=== PATIENT | male | born 1965 | race Caucasian/White ===

== ENCOUNTER → 2017-05-09 | Outpatient (CLI) | payer OTHER ==
[2017-05-09 17:43] LABS: BASO % 0.1 %; BASO ABS # 0.01 K/uL (0-0.2); EOS % 3.6 %; EOS ABS # 0.36 K/uL (0-0.5); HEMATOCRIT 41.5 % (42-52); HEMOGLOBIN 14.6 g/dL (14.0-18.0); IG# 0.13 K/uL (0.00-0.02); LYMPH % 33.8 %; LYMPH ABS # 3.41 K/uL (1.2-3.4); MEAN CELL VOLUME 86.3 fL (80-100); MEAN CORPUSCULAR HEMOGLOBIN 30.4 pg (25-34); MEAN CORPUSCULAR HGB CONC 35.2 g/dl (32-36); MEAN PLATELET VOLUME 10.5 fL (7.4-10.4); MONO % 7.8 %; MONO ABS # 0.79 K/uL (0.11-0.59); NEUT % 53.4 %; PLATELET COUNT 216 K/uL (130-400); RED CELL DISTRIBUTION WIDTH CV 14.1 % (11.5-14.5); RED CELL DISTRIBUTION WIDTH SD 41.8 fL (36.4-46.3)
[2017-05-09 18:11] LABS: BLOOD UREA NITROGEN 20 mg/dl (7-18); CALCIUM 9.3 mg/dl (8.5-10.1); CARBON DIOXIDE 26 mmol/L (21-32); CREATININE 1.09 mg/dl (0.60-1.40); GLUCOSE 89 mg/dl (70-99); POTASSIUM 3.9 mmol/L (3.5-5.1); SODIUM 138 mmol/L (136-145)
== END | disposition home or self-care (01) ==
LOC: C.LABSPEC 16:15
PROVIDERS: ATTEND Family Medicine
DX: B34.9 Viral infection, unspecified (principal)

== ENCOUNTER 2021-07-06 23:23 | Inpatient (IN) ==
[2021-07-06] MEDS ORDERED: ONDANSETRON INJ 2 MG/ML 2 ML VIAL IV STA (23:54)
[2021-07-06] MEDS ORDERED: SODIUM CHLORIDE 0.9% 1000ML 1,000 ML IV STA (23:54)
--- NOTE | 2021-07-06 23:56 | Emergency Department Note ---
Impression & Plan COVID-19 ADMIT ED Provider Note HPI: The patient is a 56-year-old gentleman who presents to the emergency department with a chief complaint of feeling "sick". Patient states that he has had symptoms of COVID-19 for about the past month. He states he was officially di agnosed with COVID-19 1 week ago. He states that he is not feeling any better. Patient states he is nauseated, has diminished appetite, generalized weakness. States he also has shortness of breath. Patient tells me he gets very severe severely short of breath with ambulation, states he had to crawl to the restroom today because he was unable to walk. On arrival to the ED the patient is in mil d distress secondary to increased work of breathing but he is saturating at 92% on room air. He is otherwise hemodynamically stable. ROS: -General: Generalized weakness, recent diagnosis of COVID-19 -GI: Nausea, diminished appetite *10 point review systems was conducted and is otherwise negative unless stated above *Outpatient medications and allergy history reviewed PE: General: Alert HEENT: Normocephalic, atraumatic Eyes: Extraocular eye movement is intact, no scleral erythema Pulmonary: Diminished air movement bilaterally, coarse breath sounds bilaterally Cardio: Regular rate and rhythm GI: Abdomen is soft, nontender : No suprapubic tenderness MSK: No evidence of trauma or malformation of the extremities, no edema Skin: No evidence of rash Neuro: Alert, no focal deficits Psychiatric: Cooperative quality assurance monitor final: - An order was placed for continuous cardiac monitoring - Patient was noted to be in sinus rhythm with rate of 85 EKG: Rate: 89 Rhythm: Normal sinus rhythm Intervals: Within normal limits Time: 0036 ST changes: No ST elevation CTA CHEST: Very extensive bilateral pulmonary infiltrates in all lobes consistent with bilateral pneumonia. Infiltrates have worsened relative to July 01, 2021. No evidence of pulmonary emboli. C Radiologist: Johnnie Brady MD Medical Decision Making: Patient presented to the emergency department with increased work of breathing, he was diagnosed with COVID-19 on June 30. He states his symptoms have worsened since then, states he feels more short of breath, states he is having difficulty ambulating throughout his house. He is saturating at 92% on room air on my evaluation, this is fluctuated somewhat but he has remained between 90 and 92% on room air while here in the ED with mild increased work of breathing. Lab work is generally unremarkable, he does not have a leukocytosis, he does have slight hyponatremia. Chest x-ray is concerning for multifocal pneumonia, CT imaging was obtained of the chest that does not show any evidence of pulmonary embolism but does show fairly extensive bilateral pulmonary infiltrates in all lobes consistent with bilateral pneumonia. My reassessment the patient states he does not feel well enough to go home, he was given a dose of IV Decadron as I do suspect his CT imaging findings are secondary to COVID-19 pneumonia. He is unvaccinated. We do not have monoclonal antibodies available for the patient. He tells me he does not feel safe going home and he believes he will require admission. Given his work of breathing with ambulation and imaging findings hospitalist service will be consulted for admission. Patient was in agreement to the above plan. Diagnosis: 1. COVID-19 bilateral pneumonia 2. Dyspnea on exertion 3. Hyponatremia 4. Generalized weakness Disposition: Admission Herb Wilburn DO Emergency Medicine Past Med/Surg History Medical History (Updated 07/07/21 @ 02:52 by Herb Wilburn DO) Chronic back pain Degenerative disc disease GERD (gastroesophageal reflux disease) mild - baking soda PRN History of anesthesia reaction trouble urinating post-op Peripheral neuropathy whole body - originated in cervical spine Transverse myelitis cervical 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 Follows with [place] Neurosurgeon, Dr. Connelly ([place]) Surgical History History of colonoscopy History of discectomy with fusion C5-C6 (2018). 90% ROM History of open reduction and internal fixation (ORIF) procedure Left elbow S/P epidural steroid injection right SI Joint S/P LASIK surgery Family History Other No family history of adverse response to anesthesia Social History Smoking Status: Former smoker Second Hand Exposure: Yes (hx); Hx Alcohol Use: No Hx Substance Use: No Preferred Language: Czech Communication Ability: Effective Nuclear Medicine Supervisor Required: No Beliefs That Will Affect Care: None Current Living Situation: Parent Feels Safe at Home: Yes Assistive Devices: None Allergies Allergies Allergy/AdvReac Type Severity Reaction Status Date / Time No Known Allergies Allergy Verified 07/07/21 01:54 Home Meds Home Medications Medication Instructions Recorded Confirmed ascorbic acid (vitamin C) 1,000 mg 1 g PO DAILY 07/02/19 07/07/21 tablet (Vitamin C) cyanocobalamin (vitamin B-12) 1,000 mcg PO Q2D 07/02/19 07/07/21 1,000 mcg tablet (Vitamin B-12) gabapentin 300 mg capsule 1,200 mg PO TID 07/02/19 07/07/21 baclofen 20 mg tablet 30 mg PO TID 06/30/21 07/07/21 acetaminophen 325 mg tablet 650 mg PO QID PRN 07/07/21 07/07/21 (Tylenol) albuterol sulfate 90 mcg/actuation 1 - 2 puff INHALATION QID PRN 07/07/21 07/07/21 aerosol inhaler ibuprofen 200 mg tablet (Motrin IB) 600 mg PO Q6H PRN 07/07/21 07/07/21 Results & Data (ED) Vital Signs Vital Signs - 24 hr 07/06/21 23:32 07/07/21 00:49 07/07/21 02:35 Temperature 36.9 C Temperature Source Temporal Artery Scan Pulse Rate 107 H Pulse Rate [Apical] 85 Pulse Rhythm [Apical] Regular Respiratory Rate 18 17 22 Respiratory Effort / Characteristics Non-Labored SOB on Exertion Non-Labored Respiratory Depth Normal Normal Normal Respiratory Pattern Regular Regular Blood Pressure 98/63 L Blood Pressure [Right Arm] 110/70 112/80 Blood Pressure Mean 74 Blood Pressure Mean [Right Arm] 83 90 Pulse Oximetry 92 93 93 Oxygen Delivery Method Room Air Room Air Room Air Oxygen Flow Rate 91 Sepsis Recent Fever Within 48 Hours No Sepsis New/Unexplained Change in Mental Status N/A Sepsis Action Taken by Nursing No Action Required Pulse Oximetry Post Tiitration 92 Laboratory Data Result diagrams: 07/07/21 00:45 07/07/21 00:45 Lab Results 07/07/21 07/07/21 07/07/21 Range/Units 00:45 00:45 00:45 WBC 5.47 (4.8-10.8) K/uL RBC 4.30 L (4.7-6.1) M/uL Hgb 12.4 L (14.0-18.0) g/dL Hct 35.5 L (42-52) % MCV 82.6 (80-100) fL MCH 28.8 (25-34) pg MCHC 34.9 (32-36) g/dL RDW Std Deviation 40.8 (36.4-46.3) fL RDW Coeff of Sherie 13.4 (11.5-14.5) % Plt Count 348 (130-400) K/uL MPV 8.9 (7.4-10.4) fL Immature Gran % (Auto) 0.9 % Neut % (Auto) 82.2 % Lymph % (Auto) 9.3 % [place] % (Auto) 6.8 % Eos % (Auto) 0.4 % Baso % (Auto) 0.4 % Neut # (Auto) 4.50 (1.4-6.5) K/uL Lymph # (Auto) 0.51 L (1.2-3.4) K/uL [place] # (Auto) 0.37 (0.11-0.59) K/uL Eos # (Auto) 0.02 (0-0.5) K/uL Baso # (Auto) 0.02 (0-0.2) K/uL Immature Gran # (Auto) 0.05 H (0.00-0.02) K/uL RBC Morphology Unremarkable Sodium 129 L (136-145) mmol/L Potassium 3.5 (3.5-5.1) mmol/L Chloride 100 (98-107) mmol/L Carbon Dioxide 21 (21-32) mmol/L Anion Gap 8 (3-11) BUN 12 (6-23) mg/dl Creatinine 0.70 (0.6-1.4) mg/dl Est Cr Clr Drug Dosing Not Reportable Est GFR ( Amer) 123.1 ml/min Est GFR (Non-Af Amer) 106.2 ml/min BUN/Creatinine Ratio 17.1 (10-20) Glucose 102 H (70-99(Fasting)) mg/dl Calcium 8.2 L (8.5-10.1) mg/dl Total Bilirubin 0.7 (0.2-1.0) mg/dl AST 57 H (13-39) U/L ALT 74 H (7-52) U/L Alkaline Phosphatase 140 H (34-104) U/L Troponin I < 0.03 (0-0.04) ng/ml Total Protein 6.1 (6.0-8.3) gm/dl Albumin 3.1 L (3.4-5.0) gm/dl Globulin 3.0 (2.5-4.0) gm/dl Albumin/Globulin Ratio 1.0 (0.9-2) Lipase 33 (11-82) U/L Procalcitonin 0.14 (0-0.5) ng/ml Administered Medications Discontinued Medications Sodium Chloride (Nss 1000ml) 1,000 mls @ 999 mls/hr IV .Q1H1M STA Stop: 07/07/21 00:54 Last Infusion: 07/07/21 01:46 Dose: 0 mls/hr Documented by: [id number] Admin: 07/07/21 00:43 Dose: 999 mls/hr Documented by: [id number] Ioversol (Optiray 320 125ml) 118 ml IV ONCE ONE Stop: 07/07/21 01:43 Last Admin: 07/07/21 01:42 Dose: 118 ml Documented by: [id number] Ondansetron HCl (Ondansetron Inj 2 Mg/Ml 2 Ml Vial) 4 mg IV NOW STA Stop: 07/06/21 23:55 Last Admin: 07/07/21 00:43 Dose: 4 mg Documented by: [id number] Discharge Plan Visit Data Chief Complaint: Shortness of Breath/Dyspnea Stated Complaint: COVID+ 1 MONTH, SOB, FEVER WORSENING ED Provider: Herb Wilburn Discharge Problem: COVID-19 Forms Stand Alone Forms: [facility] Prescriptions Prescriptions: No Action gabapentin 300 mg Capsule 1,200 mg PO TID RF: 0 ascorbic acid (vitamin C) [Vitamin C] 1,000 mg Tablet 1 g PO DAILY RF: 0 cyanocobalamin (vitamin B-12) [Vitamin B-12] 1,000 mcg Tablet 1,000 mcg PO Q2D RF: 0 baclofen 20 mg Tablet 30 mg PO TID RF: 0 acetaminophen [Tylenol] 325 mg Tablet 650 mg PO QID PRN (Reason: Fever Or Pain) RF: 0 ibuprofen [Motrin IB] 200 mg Tablet 600 mg PO Q6H PRN (Reason: Fever/pain) RF: 0 albuterol sulfate 90 mcg/actuation HFA aerosol inhaler 1 - 2 puff INHALATION QID PRN (Reason: Shortness Of Breath Or Wheezing) RF: 0 Referrals Referrals: Susu Marmolejo PA-C [Primary Care Provider] -
[2021-07-07 00:54] LABS: Hematocrit (blood only) 35.5 % (42-52); Hemoglobin 12.4 g/dL (14.0-18.0); Mean Corpuscular Hemoglobin 28.8 pg (25-34); Mean Corpuscular Hgb Conc 34.9 g/dL (32-36); Mean Corpuscular Volume 82.6 fL (80-100); Mean Platelet Volume 8.9 fL (7.4-10.4); Platelet Count 348 K/uL (130-400); RDW Coefficient of Variation 13.4 % (11.5-14.5); RDW Standard Deviation 40.8 fL (36.4-46.3); White Blood Count 5.47 K/uL (4.8-10.8)
[2021-07-07 01:16] LABS: Troponin I < 0.03 ng/ml (0-0.04)
[2021-07-07 01:18] LABS: Alanine Aminotransferase 74 U/L (7-52); Albumin Level 3.1 gm/dl (3.4-5.0); Alkaline Phosphatase 140 U/L (34-104); Anion Gap 8 (3-11); Aspartate Aminotransferase 57 U/L (13-39); BUN Creatinine Ratio 17.1 (10-20); Bilirubin,Total 0.7 mg/dl (0.2-1.0); Blood Urea Nitrogen 12 mg/dl (6-23); Calcium 8.2 mg/dl (8.5-10.1); Carbon Dioxide 21 mmol/L (21-32); Chloride 100 mmol/L (98-107); Est GFR (African American) 123.1 ml/min; Est GFR (Non-African American) 106.2 ml/min; Glucose 102 mg/dl (70-99(Fasting)); Lipase 33 U/L (11-82); Potassium 3.5 mmol/L (3.5-5.1); Sodium 129 mmol/L (136-145); Total Protein 6.1 gm/dl (6.0-8.3)
[2021-07-07 01:22] LABS: Basophils # (auto) 0.02 K/uL (0-0.2); Basophils % (auto) 0.4 %; Eosinophils # (auto) 0.02 K/uL (0-0.5); Eosinophils % (auto) 0.4 %; Immature Granulocytes # (auto) 0.05 K/uL (0.00-0.02); Immature Granulocytes % (auto) 0.9 %; Lymphocytes # (auto) 0.51 K/uL (1.2-3.4); Lymphocytes % (auto) 9.3 %; Monocytes # (auto) 0.37 K/uL (0.11-0.59); Monocytes % (auto) 6.8 %; Neutrophils % (auto) 82.2 %; RBC Morphology Unremarkable
[2021-07-07] MEDS ORDERED: OPTIRAY 320 125ml IV ONE (01:42)
[2021-07-07] MEDS ORDERED: dexAMETHasone 8 MG in SYRINGE 0 ML IV ONE (02:24)
[2021-07-07 03:18] LABS: Influenza A virus by PCR Negative (Neg); Influenza B virus by PCR Negative (Neg); RSV by PCR Negative (Neg)
[2021-07-07 03:21] LABS: SARS CoV2 RNA(COVID-19) InHosp POSITIVE (Negative)
[2021-07-07] MEDS ORDERED: ACETAMINOPHEN 325 MG TAB PO PRN (05:32)
[2021-07-07] MEDS ORDERED: ONDANSETRON INJ 2 MG/ML 2 ML VIAL IV PRN (05:32)
--- NOTE | 2021-07-07 06:04 | History & Physical Report ---
Date of Service July 07, 2021 Assessment & Plan (1) Pneumonia due to COVID-19 virus: Plan: Pneumonia due to COVID-19 virus with hypoxia- Significantly worsened chest x-ray since 06/30 Symptoms have now been present for 4 weeks Dexamethasone 6 mg IV every 12 hours Albuterol HFA 2 puffs 4 times daily, and every 2 hours as needed Vitamin D 5000 international units p.o. every morning Guaifenesin 1200 mg p.o. twice daily Zinc sulfate 220 mg p.o. every morning Nasal cannula oxygen, titrate to keep pulse ox 94-95% Admit to monitored bed (2) Hypoxia: Plan: See above (3) Hyponatremia: Plan: Sodium 129 upon admission, 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 If worsens, would start sodium chloride 1 g p.o. twice daily (4) Transaminitis: Plan: AST 57, ALT 74 upon admission Normal just 1 week ago Likely secondary to COVID 19 infection Follow serially (5) Transverse myelitis: Plan: Was given 1 L of normal saline, reports has not been able to urinate, but does feel sensation Asks for [place] catheter to be placed. Continue routine supportive medications: Baclofen, nate B12, gabapentin Hold ibuprofen while on Decadron Admission and Anticipated Discharge Date Admission Date: July 07, 2021 History of Present Illness Chief Complaint: The patient presents to the emergency department with worsening shortness of breath, dyspnea on exertion, productive cough, and fatigue. Primary Care Provider: Susu Marmolejo PA-C The patient is a 56-year-old male with a past medical history including transverse myelitis, vitamin B12 deficiency, peripheral neuropathy and muscle spasm. He initially developed symptoms about 4 weeks ago. 1 week ago he came into the emergency department, he was diagnosed with COVID-19 infection. Due to worsening symptoms over the past week, he presents to the ED again this evening for repeat assessment. Significant laboratories: Sodium 129, potassium 3.5, AST 57, ALT 74, BUN 3.1, hemoglobin 12.4, hematocrit 35.5. COVID-19 testing was positive on 06/30/2020 Chest x-ray: Significantly worsening bilateral multifocal pneumonia. From the ED the patient received the following: Dexamethasone 8 mg IV, Zofran 4 mg IV, and normal saline 1 L bolus Allergies Allergy/AdvReac Type Severity Reaction Status Date / Time No Known Allergies Allergy Verified 07/07/21 01:54 Home Medications Medication Instructions Recorded Confirmed Type ascorbic acid (vitamin C) 1,000 mg 1 g PO DAILY 07/02/19 07/07/21 History tablet (Vitamin C) cyanocobalamin (vitamin B-12) 1,000 mcg PO Q2D 07/02/19 07/07/21 History 1,000 mcg tablet (Vitamin B-12) gabapentin 300 mg capsule 1,200 mg PO TID 07/02/19 07/07/21 History baclofen 20 mg tablet 30 mg PO TID 06/30/21 07/07/21 History acetaminophen 325 mg tablet 650 mg PO QID PRN 07/07/21 07/07/21 History (Tylenol) albuterol sulfate 90 mcg/actuation 1 - 2 puff INHALATION QID PRN 07/07/21 07/07/21 History aerosol inhaler ibuprofen 200 mg tablet (Motrin IB) 600 mg PO Q6H PRN 07/07/21 07/07/21 History Past Med/Surg History Medical History (Updated 07/07/21 @ 06:01 by Michael Zaragoza MD) Chronic back pain Degenerative disc disease GERD (gastroesophageal reflux disease) mild - baking soda PRN History of anesthesia reaction trouble urinating post-op Peripheral neuropathy whole body - originated in cervical spine Transverse myelitis cervical 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 Follows with [place] Neurosurgeon, Dr. Connelly ([place]) Surgical History History of colonoscopy History of discectomy with fusion C5-C6 (2018). 90% ROM History of open reduction and internal fixation (ORIF) procedure Left elbow S/P epidural steroid injection right SI Joint S/P LASIK surgery Family History Other No family history of adverse response to anesthesia Social History Smoking Status: Former smoker Second Hand Exposure: Yes (hx); Hx Alcohol Use: No Hx Substance Use: No Preferred Language: Faroese Communication Ability: Effective Display Department Manager Required: No Beliefs That Will Affect Care: None Current Living Situation: Parent Feels Safe at Home: Yes Assistive Devices: None Review of Systems Review of Systems: The patient denies chest pain, palpitations, lower extremity swelling, sore throat, fevers, chills, sweats, nausea, vomiting, diarrhea , constipation, abdominal pain, pelvic pain, blood in urine or stool, lightheadedness, dizziness, headache, memory loss, loss of consciousness, rash, abnormal bruising or bleeding, focal or generalized weakness, numbness or tingling in arms, generalized arthralgias or myalgias, neck pain, or night sweats. The review of systems is otherwise negative other than for that already noted above, and at least 10 systems have been reviewed. Physical Exam Physical Exam: The patient is awake, alert and oriented 3, looks very fatigued, normocephalic and atraumatic, lying in bed and in no acute distress. HEENT--PERRL, EOMI, mucous membranes and oropharynx normal. Neck--supple. No JVD. No bruits. Thyroid normal, trachea midline, no adenopathy. Heart--normal S1 and S2. No murmurs, rubs or gallops. Lungs--coarse breath sounds bilaterally. No respiratory distress or accessory muscle use at rest Abdomen--normal bowel sounds and soft. Nontender. Nondistended. Extremities--no cyanosis or clubbing. No edema. Dermatologic--normal skin turgor, normal color, no abnormal lymph nodes, no rash. Neurologic--cranial nerves II through XII grossly intact. Rheumatologic--normal range of motion. Psychiatric--normal affect. Results & Data Results & Data ([facility]) Vital Signs (Past 12 Hours) Vital Signs Temp Pulse Pulse Resp BP BP Pulse Ox 07/07/21 05:31 37.6 C H 94 H 22 123/76 94 07/07/21 04:00 88 26 H 118/76 92 07/07/21 02:35 85 22 112/80 93 07/07/21 00:49 17 110/70 93 07/06/21 23:32 36.9 C 107 H 18 98/63 L 92 Laboratory Results Laboratory Results WBC 5.47 K/uL (4.8-10.8) 07/07/21 00:45 RBC 4.30 M/uL (4.7-6.1) L 07/07/21 00:45 Hgb 12.4 g/dL (14.0-18.0) L 07/07/21 00:45 Hct 35.5 % (42-52) L 07/07/21 00:45 MCV 82.6 fL (80-100) 07/07/21 00:45 MCH 28.8 pg (25-34) 07/07/21 00:45 MCHC 34.9 g/dL (32-36) 07/07/21 00:45 RDW Std Deviation 40.8 fL (36.4-46.3) 07/07/21 00:45 RDW Coeff of Sherie 13.4 % (11.5-14.5) 07/07/21 00:45 Plt Count 348 K/uL (130-400) 07/07/21 00:45 MPV 8.9 fL (7.4-10.4) 07/07/21 00:45 Immature Gran % (Auto) 0.9 % 07/07/21 00:45 Neut % (Auto) 82.2 % 07/07/21 00:45 Lymph % (Auto) 9.3 % 07/07/21 00:45 [place] % (Auto) 6.8 % 07/07/21 00:45 Eos % (Auto) 0.4 % 07/07/21 00:45 Baso % (Auto) 0.4 % 07/07/21 00:45 Neut # (Auto) 4.50 K/uL (1.4-6.5) 07/07/21 00:45 Lymph # (Auto) 0.51 K/uL (1.2-3.4) L 07/07/21 00:45 [place] # (Auto) 0.37 K/uL (0.11-0.59) 07/07/21 00:45 Eos # (Auto) 0.02 K/uL (0-0.5) 07/07/21 00:45 Baso # (Auto) 0.02 K/uL (0-0.2) 07/07/21 00:45 Immature Gran # (Auto) 0.05 K/uL (0.00-0.02) H 07/07/21 00:45 RBC Morphology Unremarkable 07/07/21 00:45 Sodium 129 mmol/L (136-145) L 07/07/21 00:45 Potassium 3.5 mmol/L (3.5-5.1) 07/07/21 00:45 Chloride 100 mmol/L (98-107) 07/07/21 00:45 Carbon Dioxide 21 mmol/L (21-32) 07/07/21 00:45 Anion Gap 8 (3-11) 07/07/21 00:45 BUN 12 mg/dl (6-23) 07/07/21 00:45 Creatinine 0.70 mg/dl (0.6-1.4) 07/07/21 00:45 Est Cr Clr Drug Dosing Not Reportable 07/07/21 00:45 Est GFR ( Amer) 123.1 ml/min 07/07/21 00:45 Est GFR (Non-Af Amer) 106.2 ml/min 07/07/21 00:45 BUN/Creatinine Ratio 17.1 (10-20) 07/07/21 00:45 Glucose 102 mg/dl (70-99(Fasting)) H 07/07/21 00:45 Calcium 8.2 mg/dl (8.5-10.1) L 07/07/21 00:45 Total Bilirubin 0.7 mg/dl (0.2-1.0) 07/07/21 00:45 AST 57 U/L (13-39) H 07/07/21 00:45 ALT 74 U/L (7-52) H 07/07/21 00:45 Alkaline Phosphatase 140 U/L (34-104) H 07/07/21 00:45 Troponin I < 0.03 ng/ml (0-0.04) 07/07/21 00:45 Total Protein 6.1 gm/dl (6.0-8.3) 07/07/21 00:45 Albumin 3.1 gm/dl (3.4-5.0) L 07/07/21 00:45 Globulin 3.0 gm/dl (2.5-4.0) 07/07/21 00:45 Albumin/Globulin Ratio 1.0 (0.9-2) 07/07/21 00:45 Lipase 33 U/L (11-82) 07/07/21 00:45 Procalcitonin 0.14 ng/ml (0-0.5) 07/07/21 00:45 SARS-CoV-2 (PCR) POSITIVE (Negative) A* 07/07/21 02:30 Influenza Type A (PCR) Negative (Neg) 07/07/21 02:30 Influenza Type B (PCR) Negative (Neg) 07/07/21 02:30 RSV (RT-PCR) Negative (Neg) 07/07/21 02:30 Code Status & VTE Plan Code Status Full code VTE Prophylaxis Plan VTE Prophylaxis will be ordered: Yes PG Care Time/CCT Total # of Minutes Spent Total Time Spent with Patient: Total time spent is greater than 50% in coordination of care (as documented) at patient's floor/unit and/or counseling patient: Coding Level of Care Code 20838 Initial Inpt Care Lvl 3 Diagnoses Pneumonia due to COVID-19 virus U07.1; J12.82 Hypoxia R09.02 Hyponatremia E87.1 Transaminitis R74.01 Transverse myelitis G37.3
[2021-07-07] MEDS ORDERED: PATIENT'S HEIGHT AND/OR WEIGHT NEEDED SCH (06:15)
[2021-07-07] MEDS: ALBUTEROL HFA 8 GM INHALER INH SCH ×4 (06:15→19:49)
--- NOTE | 2021-07-07 08:01 | Hospitalist Progress Note ---
Date of Service July 07, 2021 Assessment & Plan (1) Pneumonia due to COVID-19 virus: Plan: Jasbir is a 56-year-old male with past medical history of transverse myelitis, B12 deficiency, peripheral neuropathy, chronic muscle spasms who presents to the emergency department with shortness of breath, dyspnea, cough, and fatigue which began approximately 7 days ago and he was diagnosed with COVID-19. He was initially discharged home, has had worsening symptoms over the past week and presents for reevaluation. Acute hypoxic respiratory failure 2/2 COVID-pneumonia Covid positive on 06/30/2021. Repeat positive on admission. Flu/RSV negative First day of symptoms: Unclear, reports up to 1 month of symptoms. Vaccination status: Did not receive COVID-vaccine Baseline kidney function: Normal Admitting kidney function: Creatinine 0.70 AST/ALT: 57/74, mildly elevated normal at baseline. Alk phos 140. Patient with some abdominal pain and right upper quadrant tenderness, although not severe and not worsened by food. Will obtain right upper quadrant ultrasound for gallbladder assessment although likely suspect due to COVID. CXR: Significantly worsened multifocal pneumonia CTA: Very extensive bilateral pulmonary infiltrates in all lobes consistent wi th bilateral pneumonia, worsened infiltrates from 07/01, no evidence of pulmonary emboli CRP: Pending Procalcitonin negative, antibiotics deferred Continue dexamethasone x10-day course Remdesivir: Not indicated, patient with more than 10 days of symptoms Baricitinib: Not indicated, patient not requiring high flow Started on increased dose dexamethasone 6 mg IV twice daily on admission given severe disease and worsening, continue to follow Albuterol as needed Guaifenesin as needed Zinc sulfate every morning SPO2 support, goal greater than 90% Lovenox COVID DVT prophylaxis (2) Hypoxia: Plan: See above (3) Hyponatremia: Plan: Sodium 129 upon admission, 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 If worsens, would start sodium chloride 1 g p.o. twice daily (4) Transaminitis: Plan: AST 57, ALT 74 upon admission Normal just 1 week ago Patient does report some right upper quadrant discomfort, denies that this is affected by food but also reports he has not eaten much of anything in the previous month. Alk phos also elevated, acutely elevation. Will obtain ultrasound gallbladder to better assess although may just be consistent with COVID-19 infection Follow serially (5) Transverse myelitis: Plan: Continue routine supportive medications: Baclofen, nate B12, gabapentin Hold ibuprofen while on Decadron hx of intermittent chronic urinary retention per pt Admission and Anticipated Discharge Date Admission Date: July 07, 2021 Subjective Almost no PO intake in last month, 'parched and tired and anything that entered my mouth ended up the enemy and a mouth full of alum. Even lozenge worthless.' Symptoms have worsened Gradually worsened since last tuesday 'gradually went downhill.' Cant sleep, wakes up short of breath with oxygen levels in the 80s. Only a handful of sleep in the last month. Denies chest pain, chest pressure, shortness of breath while laying in bed at time of visit. Endorses shortness of breath with any ambulation, walking around "just wiped me out ". Endorses he feels like he has had a sour/rotten gut for a month. Denies nausea/vomiting/diarrhea. Does not report any change in discomfort with food, but notes he just has not been eating anything in the previous few weeks. Review of Systems Review of Systems: All systems reviewed & are unremarkable except as noted in Subjective Physical Exam Physical Exam: General: A&Ox3. NAD. Cooperative. HEENT: Atraumatic, normocephalic. Pupils equal and reactive to light. Visual acuity grossly intact. Pulm: Bibasilar crackles,-wheezes, -rales, -rhonchi. Symmetrical chest rise. No increase in work of breathing. No respiratory distress. Cardiac: RRR, -mrg. Radial pulses intact and symmetrical. Abdominal: Trace right upper quadrant tenderness, greatly improved from prior per patient, nondistended, soft. BS present. Extremities: Sensation intact in all 4 extremities to soft touch. Radial pulse and PT pulse intact and symmetrical bilaterally. No pedal edema. Rn Surgery Icu strength, elbow flexion/extension, hip flexion, and ankle dorsiflexion/plantarflexion 5/5 bilaterally although qualitatively slightly weaker on the right. Results & Data Results & Data ([facility]) Vital Signs (Past 12 Hours) Vital Signs Temp Pulse Pulse Resp BP BP Pulse Ox 07/07/21 07:38 36.9 C 95 H 20 110/75 95 07/07/21 06:19 07/07/21 06:17 94 H 20 93 07/07/21 06:00 98 H 23 121/83 93 07/07/21 05:31 37.6 C H 94 H 22 123/76 94 07/07/21 04:00 88 26 H 118/76 92 07/07/21 02:35 85 22 112/80 93 07/07/21 00:49 17 110/70 93 07/06/21 23:32 36.9 C 107 H 18 98/63 L 92 Pulse Ox 07/07/21 07:38 07/07/21 06:19 93 07/07/21 06:17 07/07/21 06:00 07/07/21 05:31 07/07/21 04:00 07/07/21 02:35 07/07/21 00:49 07/06/21 23:32 PG Care Time/CCT Total # of Minutes Spent Total Time Spent with Patient: Total time spent is greater than 50% in coordination of care (as documented) at patient's floor/unit and/or counseling patient: Coding Level of Care Code 32792 Subseq Hosp Care Lvl 2 Diagnoses Pneumonia due to COVID-19 virus U07.1; J12.82 Hypoxia R09.02 Hyponatremia E87.1 Transaminitis R74.01 Transverse myelitis G37.3
--- NOTE | 2021-07-07 08:04 | CT Scan Report ---
CT angio chest PE protocol CLINICAL HISTORY: Shortness of breath, chest pain and low oxygen saturation. Similar symptoms 1 week ago. Evaluate for pulmonary embolus COMPARISON STUDY: 07/01/2021 and portable chest from 07/07/2021 CT DOSE: 363.87 mGy.cm TECHNIQUE: CT Angio of the chest was performed.followed by image post processing with coronal, and s agittal MIP reformats. Contrast Volume: Optiray 320, 118 ml FINDINGS: Vasculature: There is homogeneous perfusion of the pulmonary vasculature bilaterally. No intraluminal filling defects or evidence for pulmonary embolus is seen. Airway: The airway is clear. No endobronchial lesion is identified. Lungs: Compared to the previous examination, there is worsening of extensive groundglass opacities th roughout both lungs characteristic of a viral type pneumonitis and Covid 19 pneumonia. Pleura: There is no evidence for pleural effusion. There is no evidence for pneumothorax. Mediastinum: There is no evidence for pathologic adenopathy. The heart size is within normal limits. Mild coronary artery calcification is present. The thoracic aorta is within normal limits. There is n o evidence for pericardial effusion. Upper abdomen:The adrenal glands are normal bilaterally. Osseous structures: There is no acute osseous pathology. Impression: 1. No CTA evidence for pulmonary embolus. 2. Compared to the previous examination, there is worsening of extensive groundglass opacities throug hout both lungs characteristic of a viral type pneumonitis and Covid 19 pneumonia. ACT 112: Negative or not required by law. Electronically signed by: Lukas Castañeda M.D. 07/07/2021 8:03 AM
--- NOTE | 2021-07-07 08:29 | XRay Report ---
XR chest 1V portable CLINICAL HISTORY: Atypical chest pain TECHNIQUE: Single frontal radiograph of the chest was obtained. Comparison: Comparison is made to chest one view 06/30/2021 FINDINGS: No lines and tubes are seen. The cardiomediastinal silhouette is normal. Multifocal airspace opacitie s are seen. No evidence of pleural effusion or pneumothorax. IMPRESSION: Multifocal airspace opacities, increased from prior exam, compatible with worsening pneumonia. ACT 112: Negative or not required by law. Electronically signed by: Quincy Pelayo M.D. 07/07/2021 8:27 AM
[2021-07-07] MEDS: BACLOFEN 10 MG TAB PO SCH ×3 (08:33→20:44)
[2021-07-07] MEDS: CHOLECALCIFEROL 5,000 UNITS 125 MCG TAB PO SCH (08:33)
[2021-07-07] MEDS: ZINC SULFATE 220 MG CAPSULE PO SCH (08:34)
[2021-07-07] MEDS: guaiFENesin 600 MG TABCR PO SCH ×2 (08:34→20:44)
[2021-07-07] MEDS: dexAMETHasone 6 MG in SYRINGE 0 ML IV SCH ×2 (08:34→20:45)
[2021-07-07] MEDS: CYANOCOBALAMIN 500 MCG TABLET (VITAMIN B-12) PO SCH (08:35)
[2021-07-07] MEDS: ENOXAPARIN INJ 40 MG/0.4 ML SYR SQ SCH ×2 (08:35→20:44)
[2021-07-07] MEDS: ASCORBIC ACID 500 MG TAB PO SCH (08:35)
[2021-07-07] MEDS: GABAPENTIN 600 MG TAB PO SCH ×3 (08:36→20:45)
[2021-07-07] MEDS ORDERED: SODIUM CHLORIDE 0.65% NA SOLN 45 ML (OCEAN) ONE (20:55)
--- NOTE | 2021-07-07 21:11 | Electrocardiogram Report ---
Test Reason : Blood Pressure : / mmHG Vent. Rate : 089 BPM Atrial Rate : 089 BPM P-R Int : 160 ms QRS Dur : 098 ms QT Int : 368 ms P-R-T Axes : 045 014 019 degrees QTc Int : 447 ms Normal sinus rhythm Nonspecific T wave abnormality Abnormal ECG When compared with ECG of 30-JUN-2021 23:16, No significant change was found Confirmed by Massimo Hernandez ([id number]) on 07/07/2021 9:10:45 PM Referred By: REFERRED SELF Confirmed By:Massimo Hernandez
[2021-07-08] MEDS: ALBUTEROL HFA 8 GM INHALER INH SCH ×4 (06:32→20:09)
[2021-07-08 07:21] LABS: Hematocrit (blood only) 36.6 % (42-52); Hemoglobin 12.5 g/dL (14.0-18.0); Mean Corpuscular Hemoglobin 28.5 pg (25-34); Mean Corpuscular Hgb Conc 34.2 g/dL (32-36); Mean Corpuscular Volume 83.6 fL (80-100); Mean Platelet Volume 9.1 fL (7.4-10.4); Platelet Count 402 K/uL (130-400); RDW Coefficient of Variation 13.6 % (11.5-14.5); RDW Standard Deviation 41.6 fL (36.4-46.3); Red Blood Count 4.38 M/uL (4.7-6.1); White Blood Count 10.06 K/uL (4.8-10.8)
--- NOTE | 2021-07-08 07:29 | Ultrasound Report ---
ULTRASOUND RIGHT UPPER QUADRANT ABDOMEN CLINICAL HISTORY: Right upper quadrant abdominal pain. COMPARISON STUDY: Chest CT dated 07/07/2021. TECHNIQUE: Real-time, grayscale, and color flow sonography of the right upper quadrant of the abdomen was performed. Images are reviewed in the transverse and longitudinal planes. FINDINGS: Liver: The liver is normal in size and echotexture. There is no intrahepatic biliary ductal dilatatio n. The main portal vein is patent. Focal fatty infiltration is seen adjacent to the falciform ligamen t. This was also shown on the recent chest CT. Gallbladder: The gallbladder is normal in appearance. No gallstones are identified. There is no gallb ladder wall thickening or pericholecystic fluid. A sonographic Easley's sign is reportedly absent. Th e common bile duct measures up to 0.3 cm in diameter. Pancreas: Visualized portions of the pancreatic head and body are normal in appearance. The splenic v ein is patent. Right kidney: Survey images of the right kidney demonstrate normal size and echotexture. There is no hydronephrosis. Scattered renal sinus cysts measure up to 1 cm. Ascites: None. IMPRESSION: Unremarkable sonographic assessment of the right upper quadrant. No gallstones are identi fied. ACT 112: Negative or not required by law. Electronically signed by: Terry Mckoy M.D. 07/08/2021 7:27 AM
[2021-07-08] MEDS: ENOXAPARIN INJ 40 MG/0.4 ML SYR SQ SCH ×2 (07:33→22:32)
[2021-07-08 07:42] LABS: Basophils # (auto) 0.03 K/uL (0-0.2); Basophils % (auto) 0.3 %; Immature Granulocytes # (auto) 0.06 K/uL (0.00-0.02); Immature Granulocytes % (auto) 0.6 %; Lymphocytes # (auto) 0.88 K/uL (1.2-3.4); Lymphocytes % (auto) 8.7 %; Monocytes # (auto) 0.62 K/uL (0.11-0.59); Monocytes % (auto) 6.2 %; Neutrophils # (auto) 8.47 K/uL (1.4-6.5); Neutrophils % (auto) 84.2 %
[2021-07-08 07:55] LABS: Albumin Globulin Ratio 1.1 (0.9-2); Albumin Level 3.2 gm/dl (3.4-5.0); BUN Creatinine Ratio 23.9 (10-20); Bilirubin,Total 0.5 mg/dl (0.2-1.0); Calcium 8.7 mg/dl (8.5-10.1); Creatinine Clr Calc Pharmacy 125.2 ml/min; Est GFR (African American) 122.4 ml/min; Est GFR (Non-African American) 105.6 ml/min; Globulin 2.9 gm/dl (2.5-4.0); Potassium 4.3 mmol/L (3.5-5.1); Total Protein 6.1 gm/dl (6.0-8.3)
[2021-07-08] MEDS: guaiFENesin 600 MG TABCR PO SCH ×2 (08:38→22:34)
[2021-07-08] MEDS: ZINC SULFATE 220 MG CAPSULE PO SCH (08:38)
[2021-07-08] MEDS: GABAPENTIN 600 MG TAB PO SCH ×3 (08:39→22:33)
[2021-07-08] MEDS: BACLOFEN 10 MG TAB PO SCH ×3 (08:39→22:37)
[2021-07-08] MEDS: CHOLECALCIFEROL 5,000 UNITS 125 MCG TAB PO SCH (08:39)
[2021-07-08] MEDS: ASCORBIC ACID 500 MG TAB PO SCH (08:40)
[2021-07-08] MEDS: dexAMETHasone 6 MG in SYRINGE 0 ML IV SCH (08:43)
[2021-07-08] MEDS: ALBUT/IPRATROP 3MG/0.5MG NEB 3 ML VIAL NEB PRN (08:47)
--- NOTE | 2021-07-08 11:37 | Hospitalist Progress Note ---
Date of Service July 08, 2021 Assessment & Plan (1) Pneumonia due to COVID-19 virus: Plan: Jasbir is a 56-year-old male with past medical history of transverse myelitis, B12 deficiency, peripheral neuropathy, chronic muscle spasms who presents to the emergency department with shortness of breath, dyspnea, cough, and fatigue which began approximately 7 days ago and he was diagnosed with COVID-19. He was initially discharged home, has had worsening symptoms over the past week and presents for reevaluation. Acute hypoxic respiratory failure 2/2 COVID-pneumonia Covid positive on 06/30/2021. Repeat positive on admission. Flu/RSV negative First day of symptoms: Unclear, reports up to 1 month of symptoms. Vaccination status: Did not receive COVID-vaccine Baseline kidney function: Normal Admitting kidney function: Creatinine 0.70 AST/ALT: 57/74, mildly elevated normal at baseline. Alk phos 140. Patient with some abdominal pain and right upper quadrant tenderness, although not severe and not worsened by food. Will obtain right upper quadrant ultrasound for gallbladder assessment although likely suspect due to COVID. CXR: Significantly worsened multifocal pneumonia CTA: Very extensive bilateral pulmonary infiltrates in all lobes consistent wi th bilateral pneumonia, worsened infiltrates from 07/01, no evidence of pulmonary emboli CRP: Pending Procalcitonin negative, antibiotics deferred Continue dexamethasone x10-day course Remdesivir: Not indicated, patient with more than 10 days of symptoms Baricitinib: Not indicated, patient not requiring high flow Started on increased dose dexamethasone 6 mg IV twice daily on admission given severe disease and worsening, continue to follow Albuterol as needed Guaifenesin as needed Zinc sulfate every morning SPO2 support, goal greater than 90%, slightly increased oxygen requirements overnight. 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 Alk phos also elevated, acutely elevation. Ultrasound gallbladder: No signs of acute cholecystitis, cholelithiasis COVID-19 infection Follow serially (5) Transverse myelitis: Plan: Continue routine supportive medications: Baclofen, nate B12, gabapentin Hold ibuprofen while on Decadron hx of intermittent chronic urinary retention per pt Admission and Anticipated Discharge Date Admission Date: July 07, 2021 Subjective Seen at bedside this morning. Reports he feels little bit better and was the first night he had sleep laying down in a while, and is starting to eat a little bit of breakfast today. While he feels better he reports he feels off significantly office visit. On 3 L nasal cannula oxygen today, O2 sat 94%. Continues on steroids and supportive care. Denies nausea, vomiting, diarrhea, constipation today. Some shortness of breath laying flat and intermittently with ambulation today. Intermittent cough. No chest pain/chest pressure. Review of Systems Review of Systems: All systems reviewed & are unremarkable except as noted in Subjective Physical Exam Physical Exam: General: A&Ox3. NAD. Cooperative. HEENT: Atraumatic, normocephalic. Pupils equal and reactive to light. Visual acuity grossly intact. Pulm: Bibasilar crackles,-wheezes, -rales, -rhonchi. Symmetrical chest rise. No increase in work of breathing. No respiratory distress. Cardiac: RRR, -mrg. Radial pulses intact and symmetrical. Abdominal: Abdomen nontender today nondistended, soft. BS present. Extremities: Sensation intact in all 4 extremities to soft touch. Radial pulse and PT pulse intact and symmetrical bilaterally. No pedal edema. [employer] Dealer stre ngth, elbow flexion/extension, hip flexion, and ankle dorsiflexion/plantarflexion 5/5 bilaterally although qualitatively slightly weaker on the right. Results & Data Results & Data ([facility]) Vital Signs (Past 12 Hours) Vital Signs Temp Pulse Resp BP Pulse Ox 07/08/21 11:22 36.7 C 84 15 127/81 94 07/08/21 08:47 78 16 92 07/08/21 07:36 36.9 C 79 13 123/80 90 07/08/21 04:25 36.6 C 80 16 113/77 94 PG Care Time/CCT Total # of Minutes Spent Total Time Spent with Patient: Total time spent is greater than 50% in coordination of care (as documented) at patient's floor/unit and/or counseling patient: Coding Level of Care Code 05322 Subseq Hosp Care Lvl 2 Diagnoses Pneumonia due to COVID-19 virus U07.1; J12.82 Hypoxia R09.02 Hyponatremia E87.1 Transaminitis R74.01 Transverse myelitis G37.3
[2021-07-09] MEDS: ALBUT/IPRATROP 3MG/0.5MG NEB 3 ML VIAL NEB PRN (04:15)
[2021-07-09] MEDS: ACETAMINOPHEN 325 MG TAB PO PRN (06:35)
[2021-07-09 07:23] LABS: Hematocrit (blood only) 35.6 % (42-52); Mean Corpuscular Hemoglobin 28.6 pg (25-34); Mean Corpuscular Hgb Conc 33.7 g/dL (32-36); Mean Platelet Volume 9.2 fL (7.4-10.4); Platelet Count 432 K/uL (130-400); RDW Coefficient of Variation 13.9 % (11.5-14.5); RDW Standard Deviation 43.3 fL (36.4-46.3); Red Blood Count 4.19 M/uL (4.7-6.1); White Blood Count 13.45 K/uL (4.8-10.8)
[2021-07-09 07:46] LABS: Albumin Globulin Ratio 1.1 (0.9-2); Albumin Level 3.2 gm/dl (3.4-5.0); BUN Creatinine Ratio 20.8 (10-20); Bilirubin,Total 0.5 mg/dl (0.2-1.0); Calcium 8.4 mg/dl (8.5-10.1); Creatinine Clr Calc Pharmacy 123.5 ml/min; Est GFR (African American) 121.7 ml/min; Globulin 2.8 gm/dl (2.5-4.0); Potassium 4.2 mmol/L (3.5-5.1)
[2021-07-09 07:52] LABS: Basophils # (auto) 0.01 K/uL (0-0.2); Basophils % (auto) 0.1 %; Immature Granulocytes % (auto) 0.7 %; Lymphocytes # (auto) 0.65 K/uL (1.2-3.4); Lymphocytes % (auto) 4.8 %; Monocytes # (auto) 0.94 K/uL (0.11-0.59); Neutrophils # (auto) 11.75 K/uL (1.4-6.5); Neutrophils % (auto) 87.4 %
--- NOTE | 2021-07-09 08:04 | Hospitalist Progress Note ---
Date of Service July 09, 2021 Assessment & Plan (1) Pneumonia due to COVID-19 virus: Plan: Jasbir is a 56-year-old male with past medical history of transverse myelitis, B12 deficiency, peripheral neuropathy, chronic muscle spasms who presents to the emergency department with shortness of breath, dyspnea, cough, and fatigue which began approximately 7 days ago and he was diagnosed with COVID-19. He was initially discharged home, has had worsening symptoms over the past week and presents for reevaluation. Acute hypoxic respiratory failure 2/2 COVID-pneumonia Covid positive on 06/30/2021. Repeat positive on admission. Flu/RSV negative First day of symptoms: Unclear, reports up to 1 month of symptoms. Vaccination status: Did not receive COVID-vaccine Baseline kidney function: Normal Admitting kidney function: Creatinine 0.70 AST/ALT: 57/74, mildly elevated normal at baseline. Alk phos 140. Patient with some abdominal pain and right upper quadrant tenderness, although not severe and not worsened by food. Gallbladder ultrasound normal as noted below. CXR: Significantly worsened multifocal pneumonia CTA: Very extensive bilateral pulmonary infiltrates in all lobes consistent with bilateral pneumonia, worsened infiltrates from 07/01, no evidence of pulmonary emboli Repeat CXR 07/09: Improving infiltrates Procalcitonin negative, antibiotics deferred Continue dexamethasone x10-day course Remdesivir: Not indicated, patient with more than 10 days of symptoms Baricitinib: Not indicated, patient not requiring high flow Started on increased dose dexamethasone 6 mg IV on admission, continue to follow Albuterol as needed Guaifenesin as needed Zinc sulfate every morning SPO2 support, goal greater than 90% Lovenox COVID DVT prophylaxis Patient febrile x2 greater than 30 overnight, slightly increased transaminitis, increased leukocytosis although on Decadron. With patient feeling worse and increase infectious symptoms we will repeat BC x2, procalcitonin, serial x-ray continue to follow. CRP elevated at 4.66 troponin normal. ?late multi inflammatory fever/rxn, pt with history if transverse myelitis in past. Will discuss with rheum, trend CRP, follow clinically at this time. intermittently febrile throughout the day. ? MIS-A Patient does have fevers 1 month post COVID infection, worsening infiltrates as noted above now improving with steroids In addition to his transaminitis with so far negative hepatic work-up and negative biliary work-up and normal liver ultrasound and history of transverse myelitis may be at increased risk for delayed multisystem inflammatory reaction He is on vaccinated Does report a history of shingles/transverse myelitis with somewhat unclear treatment history from patient and on available records as noted below Would continue steroids and supportive care at this time. Did discuss briefly with rheumatology, several cases recently of delayed onset fevers and inflamm atory illness developing approximately 4 weeks after initial COVID symptoms seen almost exclusively in unvaccinated patients. Treatment includes IVIG and continued steroids, done on this is still developing. If no other source is identified, and appears inflammatory would also get an echo Recommend trending CRP, continued steroids. Patient likely to be transferred back to [facility] services tomorrow, and would continue work-up and treatment. Patient does report some right-sided tingling which he also had with his prior shingles outbreak, full skin survey performed and no vesicles/lesions of the skin including inner ear, forehead, and neck were found. (2) Transverse myelitis: Plan: History of transverse myelitis Records not available at time of admission, patient reports extensive history starting 2017 of neurologic sequelae which reportedly started with a shingles outbreak. The patient was started on antivirals which did not help, was transferred between [facility] and the [place] but records were lost and had a gap in care. Reports that he continued to have neck pain and edema between 2017 and 2019 with recurrent lesions and progressive weakness and pain in his extremities. Patient at some point he had an MRI which showed irritation in the spine that had started to shrink, he is not clear on the details of this. Was seen in [facility] and was placed on antivirals and high-dose IV steroids which did not help. He was also diagnosed with transverse myelitis and optical myelitis, is not sure of additional details of this. Reports May 2018 he did have a C5/C6 disc removed which helped the numbness in his hands but still had symptoms from transverse myelitis. 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 Alk phos also elevated, acutely elevated. Ultrasound gallbladder: No signs of acute cholecystitis, no cholelithiasis, no liver echotexture change Patient with increased fever 1 month out from COVID, liver panel and Lyme ordered. Lyme negative, liver panel pending COVID-19 infection, see additional discussion above Admission and Anticipated Discharge Date Admission Date: July 07, 2021 Subjective Kirit patient seen at bedside. Still somewhat fatigued, had a feeling of a pressure like breathing in distress last night, none at bedside this morning. He is using flutter valve, has not yet used inspiratory for spirometer. Had a fever overnight to 38.0 and above, did not have associated fever/chills/sweats at that time. Denies fever, chills, sweats at time of assessment, denies chest pain/chest pressure at time of assessment. Review of Systems Review of Systems: 10 point review systems negative except as noted in subjective Physical Exam Physical Exam: General: A&Ox3. NAD. Cooperative. HEENT: Atraumatic, normocephalic. Pupils equal and reactive to light. Visual acuity grossly intact. Pulm: Bibasilar crackles,-wheezes, -rales, -rhonchi. Symmetrical chest rise. No increase in work of breathing. No respiratory distress. Cardiac: RRR, -mrg. Radial pulses intact and symmetrical. Abdominal: Abdomen nontender today nondistended, soft. BS present. Moving all extremities equally sensation intact in all 4 extremities to soft touch. Radial pulse and PT pulse intact and symmetrical bilaterally. No pedal edema. [employer] Judge strength, elbow flexion/extension, hip flexion, and ankle dorsiflexion/plantarflexion 5/5 bilaterally although qualitatively slightly weaker on the right. Results & Data Results & Data ([facility]) Vital Signs (Past 12 Hours) Vital Signs Temp Pulse Resp BP Pulse Ox 07/09/21 06:30 38.3 C H 88 21 120/72 92 07/09/21 04:15 80 24 90 07/09/21 03:57 38.0 C H 79 21 129/77 93 07/09/21 00:19 37.2 C 78 19 126/85 91 07/08/21 20:09 75 18 90 PG Care Time/CCT Total # of Minutes Spent Total Time Spent with Patient: Total time spent is greater than 50% in coordination of care (as documented) at patient's floor/unit and/or counseling patient: Coding Level of Care Code 46810 Subseq Hosp Care Lvl 3 Diagnoses Pneumonia due to COVID-19 virus U07.1; J12.82 Hypoxia R09.02 Hyponatremia E87.1 Transaminitis R74.01 Transverse myelitis G37.3
[2021-07-09] MEDS: ALBUTEROL HFA 8 GM INHALER INH SCH ×4 (08:39→19:44)
--- NOTE | 2021-07-09 08:50 | XRay Report ---
XR chest 1V portable CLINICAL HISTORY: serial xr, worsening fever hx COVID. Follow-up airspace opacities COMPARISON STUDY: 07/07/2021 TECHNIQUE: 1 view of the chest FINDINGS: Single frontal view of the chest demonstrates the cardiomediastinal silhouette to be within normal li mits. Compared to the previous examination, there has been significant partial resolution of bilatera l interstitial and alveolar opacities. There is no evidence for pleural effusion. There is no evidenc e for vascular congestion. There is no acute osseous pathology. IMPRESSION: Compared to the previous examination, there has been significant partial resolution of bi lateral interstitial and alveolar opacities. ACT 112: Negative or not required by law. Electronically signed by: Lukas Castañeda M.D. 07/09/2021 8:49 AM
[2021-07-09] MEDS: CYANOCOBALAMIN 500 MCG TABLET (VITAMIN B-12) PO SCH (09:51)
[2021-07-09] MEDS: dexAMETHasone 6 MG in SYRINGE 0 ML IV SCH (09:51)
[2021-07-09] MEDS: ZINC SULFATE 220 MG CAPSULE PO SCH (09:52)
[2021-07-09] MEDS: ASCORBIC ACID 500 MG TAB PO SCH (09:52)
[2021-07-09] MEDS: guaiFENesin 600 MG TABCR PO SCH ×2 (09:52→20:02)
[2021-07-09] MEDS: CHOLECALCIFEROL 5,000 UNITS 125 MCG TAB PO SCH (09:52)
[2021-07-09] MEDS: GABAPENTIN 600 MG TAB PO SCH ×3 (09:52→20:02)
[2021-07-09] MEDS: ENOXAPARIN INJ 40 MG/0.4 ML SYR SQ SCH ×2 (09:53→20:01)
[2021-07-09] MEDS: BACLOFEN 10 MG TAB PO SCH ×3 (10:04→20:03)
[2021-07-09 10:06] LABS: Procalcitonin 0.08 ng/ml (0-0.5)
[2021-07-09 10:12] LABS: Lyme Ab IgG w/WB Rflx Negative (Negative); Lyme Ab IgM w/WB Rflx Negative (Negative)
[2021-07-09 12:25] LABS: Appearance Urine Clear (Clear); Bilirubin Urine Negative (Negative); Blood Urine Negative (Negative); Color Urine Yellow; Glucose Urine UA Negative (Negative); Ketones Urine Negative (Negative); Leukocyte Esterase Urine Negative (Negative); Nitrite Urine Negative (Negative); Protein Urine Trace (Negative); Urobilinogen Urine Positive (Negative)
[2021-07-09 12:41] LABS: Mucus Urine Present (None Prsent)
[2021-07-09 12:42] LABS: Epithelial Cell Urine 0-5 /lpf (0-5); RBC Urine 0-4 /hpf (0-4); WBC Urine 0-5 /hpf (0-5)
[2021-07-09 12:44] LABS: Bacteria Urine Negative (Negative)
[2021-07-09 12:58] LABS: Troponin I < 0.03 ng/ml (0-0.04)
[2021-07-09 13:05] LABS: C Reactive Protein 4.66 mg/dl (0-0.5)
[2021-07-10] MEDS: ENOXAPARIN INJ 40 MG/0.4 ML SYR SQ SCH (05:34)
[2021-07-10] MEDS: ACETAMINOPHEN 325 MG TAB PO PRN (05:34)
[2021-07-10 06:32] LABS: Hematocrit (blood only) 39.2 % (42-52); Hemoglobin 13.2 g/dL (14.0-18.0); Mean Corpuscular Hemoglobin 28.7 pg (25-34); Mean Corpuscular Hgb Conc 33.7 g/dL (32-36); Mean Corpuscular Volume 85.2 fL (80-100); Mean Platelet Volume 9.5 fL (7.4-10.4); Platelet Count 376 K/uL (130-400); RDW Coefficient of Variation 13.9 % (11.5-14.5); RDW Standard Deviation 42.8 fL (36.4-46.3)
[2021-07-10 07:01] LABS: Albumin Globulin Ratio 1.1 (0.9-2); Albumin Level 3.5 gm/dl (3.4-5.0); BUN Creatinine Ratio 20.5 (10-20); Bilirubin,Total 0.7 mg/dl (0.2-1.0); C Reactive Protein 7.7 mg/dl (0-0.5); Calcium 8.8 mg/dl (8.5-10.1); Creatinine Clr Calc Pharmacy 121.8 ml/min; Est GFR (Non-African American) 104.4 ml/min; Globulin 3.2 gm/dl (2.5-4.0); Potassium 4.2 mmol/L (3.5-5.1); Total Protein 6.7 gm/dl (6.0-8.3)
[2021-07-10 07:18] LABS: Basophils # (auto) 0.01 K/uL (0-0.2); Basophils % (auto) 0.1 %; Immature Granulocytes # (auto) 0.31 K/uL (0.00-0.02); Immature Granulocytes % (auto) 3.9 %; Lymphocytes # (auto) 0.88 K/uL (1.2-3.4); Monocytes # (auto) 0.66 K/uL (0.11-0.59); Monocytes % (auto) 8.3 %; Neutrophils # (auto) 6.14 K/uL (1.4-6.5); Neutrophils % (auto) 76.7 %
[2021-07-10] MEDS: ALBUTEROL HFA 8 GM INHALER INH SCH ×2 (07:32→10:11)
[2021-07-10] MEDS: GABAPENTIN 600 MG TAB PO SCH (08:08)
[2021-07-10] MEDS: dexAMETHasone 6 MG in SYRINGE 0 ML IV SCH (08:08)
[2021-07-10] MEDS: ASCORBIC ACID 500 MG TAB PO SCH (08:09)
[2021-07-10] MEDS: CHOLECALCIFEROL 5,000 UNITS 125 MCG TAB PO SCH (08:09)
[2021-07-10] MEDS: guaiFENesin 600 MG TABCR PO SCH (08:09)
[2021-07-10] MEDS: ZINC SULFATE 220 MG CAPSULE PO SCH (08:10)
[2021-07-10] MEDS: BACLOFEN 10 MG TAB PO SCH ×2 (08:43→13:48)
[2021-07-10 10:12] VITALS: O2SAT 94
--- NOTE | 2021-07-10 10:12 | Discharge Summary ---
Date of Service July 10, 2021 Admission HPI Per Admitting Provider The patient is a 56-year-old male with a past medical history including transverse myelitis, vitamin B12 deficiency, peripheral neuropathy and muscle spasm. He initially developed symptoms about 4 weeks ago. 1 week ago he came into the emergency department, he was diagnosed with COVID-19 infection. Due to worsening symptoms over the past week, he presents to the ED again this evening for repeat assessment. Significant laboratories: Sodium 129, potassium 3.5, AST 57, ALT 74, BUN 3.1, hemoglobin 12.4, hematocrit 35.5. COVID-19 testing was positive on 06/30/2020 Chest x-ray: Significantly worsening bilateral multifocal pneumonia. From the ED the patient received the following: Dexamethasone 8 mg IV, Zofran 4 mg IV, and normal saline 1 L bolus Admission Exam Per Admitting Provider The patient is awake, alert and oriented 3, looks very fatigued, normocephalic and atraumatic, lying in bed and in no acute distress. HEENT--PERRL, EOMI, mucous membranes and oropharynx normal. Neck--supple. No JVD. No bruits. Thyroid normal, trachea midline, no adenopathy. Heart--normal S1 and S2. No murmurs, rubs or gallops. Lungs--coarse breath sounds bilaterally. No respiratory distress or accessory muscle use at rest Abdomen--normal bowel sounds and soft. Nontender. Nondistended. Extremities--no cyanosis or clubbing. No edema. Dermatologic--normal skin turgor, normal color, no abnormal lymph nodes, no rash. Neurologic--cranial nerves II through XII grossly intact. Rheumatologic--normal range of motion. Psychiatric--normal affect. Principal Diagnosis COVID-19 Discharge Exam General: A&Ox3. NAD. Cooperative. Skin warm, slightly moist HEENT: Atraumatic, normocephalic. Pupils equal and reactive to light. Visual acuity grossly intact. Pulm: Bibasilar crackles,-wheezes, -rales, -rhonchi. Symmetrical chest rise. No increase in work of breathing. No respiratory distress. Cardiac: RRR, -mrg. Radial pulses intact and symmetrical. Abdominal: Abdomen nontender today nondistended, soft. BS present. Moving all extremities equally sensation intact in all 4 extremities to soft touch. Radial pulse and PT pulse intact and symmetrical bilaterally. No pedal edema. Licensed Occupational Therapist strength, elbow flexion/extension, hip flexion, and ankle dorsiflexion/plantarflexion 5/5 bilaterally although qualitatively slightly weaker on the right. Discharge Data Allergies Allergy/AdvReac Type Severity Reaction Status Date / Time No Known Allergies Allergy Verified 07/07/21 01:54 Consultations 07/07/21 02:23 ED Decision to Admit Stat Ordered Studies 07/07/21 00:51 CT angio chest PE protocol Urgent 07/08/21 US gallbladder Routine Hospital Course (1) Pneumonia due to COVID-19 virus: Jasbir is a 56-year-old male with past medical history of transverse myelitis, B12 deficiency, peripheral neuropathy, chronic muscle spasms who presents to the emergency department with shortness of breath, dyspnea, cough, and fatigue which began approximately 7 days ago and he was diagnosed with COVID-19. He was initially discharged home, has had worsening symptoms over the past week and presents for reevaluation. Transferred to [facility] On initial evaluation CTA showed extensive bilateral pulmonary infiltrates in all lobes consistent with bilateral pneumonia, worsened compared to 07/01 with no evidence of pulmonary emboli. He was placed on dexamethasone, nasal cannula oxygen as needed requiring 1-3 L, and admitted for further care. While his hypoxia initially down trended he did subsequently have multiple fevers of 38.0 Celsius and above. Procalcitonin was normal on admission, repeat procalcitonin remain negative. Follow-up chest x-ray actually showed improving infiltrates compared to prior. Patient was followed on steroids overnight, and CRP was trended. CRP did uptrend from 4.66 to 7.7 overnight, with patient feeling clinically worse. Blood cultures were drawn which were negative but pending final results at time of transfer. He did not have a leukocytosis. He did have an associated increasing transaminitis. He had initially had some abdominal pain with this transaminitis, a gallbladder ultrasound performed following admission did not show any biliary disease and normal liver echotexture. During admission Lyme testing was negative, as plasmocytoma pending, and acute liver panel was pending at time of transfer. Patient does have a history of shingles and transverse myelitis, he did not have any vesicular lesions on complete skin exam. He had not had any acute worsening of his transverse myelitis symptoms during admission. Given his history of reported immune reactions. There was concern that he could be at elevated risk for a post-COVID multi inflammatory syndrome, this was discussed with rheumatology. Recommended to follow case clinically, and if worsened and consistent with a multisystem inflammatory disease could consider increasing steroid dose and IVIG infusion. Case was discussed with [facility] who requested patient be transferred to their services. On initial eval patient was improving after admission so was observed with above testing overnight for consideration of readiness of discharge. Being that he was clinically worsening with uptrending transaminitis and CRP it was recommended he remain inpatient status for additional work-up and care and as a result should be transferred back to [facility]. Acute hypoxic respiratory failure 2/2 COVID-pneumonia Covid positive on 06/30/2021. Repeat positive on admission. Flu/RSV negative First day of symptoms: Unclear, reports up to 1 month of symptoms. Vaccination status: Did not receive COVID-vaccine Baseline kidney function: Normal Admitting kidney function: Creatinine 0.70 AST/ALT: 57/74, mildly elevated normal at baseline. Alk phos 140. Patient with some abdominal pain and right upper quadrant tenderness, although not severe and not worsened by food. Gallbladder ultrasound normal as noted below. CXR: Significantly worsened multifocal pneumonia CTA: Very extensive bilateral pulmonary infiltrates in all lobes consistent with bilateral pneumonia, worsened infiltrates from 07/01, no evidence of pul monary emboli Repeat CXR 07/09: Improving infiltrates Procalcitonin negative, antibiotics deferred Continue dexamethasone x10-day course Remdesivir: Not indicated, patient with more than 10 days of symptoms Baricitinib: Not indicated, patient not requiring high flow Started on increased dose dexamethasone 6 mg IV on admission, continue to follow Albuterol as needed Guaifenesin as needed Zinc sulfate every morning SPO2 support, goal greater than 90% Lovenox COVID DVT prophylaxis Patient febrile x2 greater than 30 overnight, slightly increased transaminitis, increased leukocytosis although on Decadron. With patient feeling worse and increase infectious symptoms we will repeat BC x2, procalcitonin, serial x-ray continue to follow. CRP elevated at 4.66 troponin normal, and uptrending at time of discharge with elevated ESR?late multi inflammatory fever/rxn, pt with history if transverse myelitis in past. intermittently febrile throughout the day. ? MIS-A Patient does have fevers 1 month post COVID infection, worsening infiltrates as noted above now improving with steroids In addition to his transaminitis with so far negative hepatic work-up and negative biliary work-up and normal liver ultrasound and history of transverse myelitis may be at increased risk for delayed multisystem inflammatory reaction He is on vaccinated Does report a history of shingles/transverse myelitis with somewhat unclear treatment history from patient and on available records as noted below Would continue steroids and supportive care at this time. Did discuss briefly with rheumatology, several cases recently of delayed onset fevers and inflammatory illness developing approximately 4 weeks after initial COVID symptoms seen almost exclusively in unvaccinated patients. Treatment includes IVIG and continued steroids, data on this is still developing. If no other source is identified, and appears inflammatory would also get an echo CRP uptrending, continue steroids. Transferred to [facility] continue work-up and treatment. Patient does report some right-sided tingling which he also had with his prior shingles outbreak, full skin survey performed and no vesicles/lesions of the skin including inner ear, forehead, and neck were found. (2) Transverse myelitis: History of transverse myelitis Records not available at time of admission, patient reports extensive history starting 2016 of neurologic sequelae which reportedly started with a shingles outbreak. The patient was started on antivirals which did not help, was transferred between [facility] and the [facility] but records were lost and had a gap in care. Reports that he continued to have neck pain and edema between 2016 and 2018 with recurrent lesions and progressive weakness and pain in his extremities. Patient at some point he had an MRI which showed irritation in the spine that had started to shrink, he is not clear on the details of this. Was seen in [facility] and was placed on antivirals and high-dose IV steroids which did not help. He was also diagnosed with transverse myelitis and optical myelitis, is not sure of additional details of this. Reports May 2018 he did have a C5/C6 disc removed which helped the numbness in his hands but still had symptoms from transverse myelitis. -Ibuprofen held while on steroids (3) Hypoxia: See above (4) Hyponatremia: Sodium 129 upon admission, ? SIADH secondary to COVID-19 pneumonia Improving, continue nutrition support and BMP daily (5) Transaminitis: AST 57, ALT 74 upon admission Normal just 1 week ago Patient did report some right upper quadrant discomfort, denies that this is affected by food but also reports he has not eaten much of anything in the prev ious month. Alk phos also elevated, acutely elevated. Ultrasound gallbladder: No signs of acute cholecystitis, no cholelithiasis, no liver echotexture change Patient with increased fever 1 month out from COVID, liver panel and Lyme ordered. Lyme negative, liver panel pending AST/ALT/AlkPhos slowly uptrending 07/10 COVID-19 infection, see additional discussion above Total Time Total Time Spent Total Time Spent (In Minutes): Time spend day of discharge minutes 1 hour including direct patient care, documentation, review of labs and images, and coordination of care. Discharge Plan Discharge Items Patient Disposition: Transfer [facility] Reason For Visit: COVID-19 PNEUMONIA WITH HYPOXIA *1 V ONLY* Discharge Diagnosis: COVID 19 Pneumonia with Hypoxia Activity: Per Instructions section Non-emergency contact: Primary Care Provider Call non-emergency contact if: you have any medication questions and your symptoms worsen Follow-up/Referrals: Susu Marmolejo PA-C [Primary Care Provider] - Diet: Regular Addtl Attending Provider Instructions: Jasbir is a 56-year-old male with past medical history of transverse myelitis, B12 deficiency, peripheral neuropathy, chronic muscle spasms who presents to the emergency department with shortness of breath, dyspnea, cough, and fatigue which began approximately 7 days ago and he was diagnosed with COVID-19. He was initially discharged home, has had worsening symptoms over the past week and presents for reevaluation. On initial evaluation CTA showed extensive bilateral pulmonary infiltrates in all lobes consistent with bilateral pneumonia, worsened compared to 07/01 with no evidence of pulmonary emboli. He was placed on dexamethasone, nasal cannula oxygen as needed requiring 1-3 L, and admitted for further care. While his hypoxia initially down trended he did subsequently have multiple fevers of 38.0 Celsius and above. Procalcitonin was normal on admission, repeat procalcitonin remain negative. Follow-up chest x-ray actually showed improving infiltrates compared to prior. Patient was followed on steroids overnight, and CRP was trended. CRP did uptrend from 4.66 to 7.7 overnight, with patient feeling clinically worse. Blood cultures were drawn which were negative but pending final results at time of transfer. He did not have a leukocytosis. He did have an associated increasing transaminitis. He had initially had some abdominal pain with this transaminitis, a gallbladder ultrasound performed following admission did not show any biliary disease and normal liver echotexture. During admission Lyme testing was negative, as plasmocytoma pending, and acute liver panel was pending at time of transfer. Patient does have a history of shingles and transverse myelitis, he did not have any vesicular lesions on complete skin exam. He had not had any acute worsening of his transverse myelitis symptoms during admission. Given his history of reported immune reactions. There was concern that he could be at elevated risk for a post-COVID multi inflammatory syndrome, this was discussed with rheumatology. Recommended to follow case clinically, and if worsened and consistent with a multisystem inflammatory disease could consider increasing steroid dose and IVIG infusion. Case was discussed with [facility] who requested patient be transferred to their services. On initial eval patient was improving after admission so was observed with above testing overnight for consideration of readiness of discharge. Being that he was clinically worsening with uptrending transaminitis and CRP it was recommended he remain inpatient status for additional work-up and care and as a result should be transferred back to [facility]. D/C summary to follow. Pending Studies at Discharge: Yes Stand-Alone Forms: My [facility] Skilled Items Patient informed of condition?: Yes DNR: No Discharge Level of Care: Other Communicable Disease: No Discharge Prognosis: Other Lines: Peripheral IV Urinary Catheter: No Medications and DC Order Prescriptions: Continued ascorbic acid (vitamin C) [Vitamin C] 1,000 mg Tablet 1 g PO DAILY RF: 0 cyanocobalamin (vitamin B-12) [Vitamin B-12] 1,000 mcg Tablet 1,000 mcg PO Q2D RF: 0 baclofen 20 mg Tablet 30 mg PO TID RF: 0 acetaminophen [Tylenol] 325 mg Tablet 650 mg PO QID PRN (Reason: Fever Or Pain) RF: 0 ibuprofen [Motrin IB] 200 mg Tablet 600 mg PO Q6H PRN (Reason: Fever/pain) RF: 0 albuterol sulfate 90 mcg/actuation HFA aerosol inhaler 1 - 2 puff INHALATION QID PRN (Reason: Shortness Of Breath Or Wheezing) RF: 0 Changed gabapentin 300 mg Capsule 600 mg PO TID Qty: 1 RF: 0 Discharge Orders: Discharge Order (Routine); Ordered 07/10/21 Ordered By: oTny Franks Admission Data Admit Date/Time: 07/07/21 03:44 Attending Provider: Tony Franks Admit Provider: Michael Zaragoza Primary Care Provider: Susu Marmolejo Other Providers: Michael Zaragoza ; [facility] Other Interventions: Discharge Summary Assessment (RN) Last Done: 07/10/21 13:36 Coding Level of Care Code D/C DAY MANAGEMENT >30 MINS Diagnoses Pneumonia due to COVID-19 virus U07.1; J12.82 Transverse myelitis G37.3 Hypoxia R09.02 Hyponatremia E87.1 Transaminitis R74.01
[2021-07-10 10:58] LABS: Hepatitis B Surf Ag Rflx Conf Neg (Neg)
[2021-07-10 11:06] LABS: Hepatitis A Antibody IgM NON-REACTIVE (NON-REACTIVE); Hepatitis B Core Antibody IgM NON-REACTIVE (NON-REACTIVE)
[2021-07-10 11:12] VITALS: BP 113/76; TEMP 97.9
[2021-07-10 11:28] LABS: Hepatitis C IgG 13Yrs+Old_Rflx Neg (Neg)
[2021-07-10 13:40] VITALS: PULSE 83
[2021-07-10] MEDS ORDERED: GABAPENTIN 600 MG TAB PO SCH (14:00)
== END 2021-07-10 14:32 | DRG 177 ==
LOC: ED 23:23 → SUATTDRO 07-07 03:44 → EDINP 07-07 03:44 → 2S 07-07 16:03 → 2W 07-09 13:54
DX: U07.1 COVID-19; Z98.1 Arthrodesis status; R74.01 Elevation of levels of liver transaminase levels; K21.9 Gastro-esophageal reflux disease without esophagitis; Z87.891 Personal history of nicotine dependence; J96.01 Acute respiratory failure with hypoxia; E22.2 Syndrome of inappropriate secretion of antidiuretic hormone; J12.82 Pneumonia due to coronavirus disease 2019; M35.81 Multisystem inflammatory syndrome

== ENCOUNTER 2022-04-13 08:28 | Inpatient (IN) ==
--- NOTE | 2022-03-25 15:49 | PAT Medication Instructions ---
Medication Instructions Date of Service March 25, 2022 Home Medications Medication Instructions Recorded gabapentin 300 mg capsule 600 mg PO TID #1 cap 07/10/21 ascorbic acid (vitamin C) 1,000 mg tablet (Vitamin C) 1 g PO QAM albuterol sulfate 90 mcg/actuation aerosol inhaler 1 - 2 puff inhalation QID PRN gabapentin 300 mg capsule 600 mg PO TID baclofen 20 mg tablet 20 mg PO TID naproxen 500 mg tablet 500 mg PO BID PRN ASK your surgeon for instructions naproxen 500 mg tablet 500 mg PO BID PRN DO NOT take the morning of surgery ascorbic acid (vitamin C) 1,000 mg tablet (Vitamin C) 1 g PO QAM baclofen 20 mg tablet 20 mg PO TID Take morning of surgery With a small sip of water, OTHERWISE NOTHING TO EAT OR DRINK AFTER MIDNIGHT: albuterol sulfate 90 mcg/actuation aerosol inhaler 1 - 2 puff inhalation QID PRN (use if needed; please bring with you to hospital day of surgery if possible) gabapentin 300 mg capsule 600 mg PO TID Take evening before surgery albuterol sulfate 90 mcg/actuation aerosol inhaler 1 - 2 puff inhalation QID PRN (if needed) gabapentin 300 mg capsule 600 mg PO TID baclofen 20 mg tablet 20 mg PO TID Other Notes If you have any questions please call us at [phone] or [phone] or [phone] or [phone]
--- NOTE | 2022-03-30 10:17 | Anesthesiology Consultation ---
Date of Service March 30, 2022 Assessment & Plan (1) Encounter for pre-operative examination: Plan - will attempt to obtain copy of 02/23/22 neurosurgery note. - potential difficult intubation: s/p cervical spine discectomy and fusion C5-6 and transverse myelitis of cervical spine. Cervical spine MRI 08/21/21: minimal C3-C4 cord atrophy myelomalacia. Suboptimally characterized mid to lower cervical spondylosis with up to moderate-severe bilateral C5-6 and left C6-7 neural foraminal narrowing. - back spasms: Pt very concerned at not taking baclofen DOS due to spasming without medication. Case discussed with Dr. Farris who advised pt can take baclofen DOS given severe spasms if without medication. Pt aware. Chart Review Chart Review: Pending: Refer to Additional Notes / Consult section and Patient seen in Pre Admission Testing Teaching & Discussion Pre-Anesthesia Teaching/Discussion Notes: Instructed NPO after midnight before surgery, except medications with 15 cc of water. Medication instructions provided according to the PAT guidelines. History Surgery Operation Date: 04/13/22 07:45 Proposed Procedures p L4-L5 Decompression and Fusion Spinal Cord Monitoring - Brayan Pollard DO Height/Weight Height: 5 ft 11 in Weight: 86.183 kg Allergies Allergy/AdvReac Type Severity Reaction Status Date / Time No Known Allergies Allergy Verified 03/22/22 14:52 Medications Home Medications Medication Instructions Recorded Confirmed Last Taken ascorbic acid (vitamin C) 1,000 mg 1 g PO QAM 07/02/19 03/22/22 06/30/21 tablet (Vitamin C) albuterol sulfate 90 mcg/actuation 1 - 2 puff inhalation QID PRN 07/07/21 03/22/22 Unknown aerosol inhaler Shortness Of Breath Or Wheezing gabapentin 300 mg capsule 600 mg PO TID #1 cap 07/10/21 03/22/22 Unknown baclofen 20 mg tablet 20 mg PO TID 09/02/21 03/22/22 Unknown naproxen 500 mg tablet 500 mg PO BID PRN Pain 03/22/22 03/22/22 Unknown Nasal [place] Sinus PRN Congestion 03/30/22 Unknown pseudoephedrine HCl PRN Congestion 03/30/22 Unknown Additional Notes: Medications added to provided medication instruction list including to NOT take pseudoephedrine DOS. Patient verbalized understanding, denied questions or concerns. Past Medical History Medical History (Updated 03/30/22 @ 10:48 by Maeve Knight PA-C) Cervicalgia Cervicogenic headache Chronic back pain Degenerative disc disease, cervical GERD (gastroesophageal reflux disease) mild - baking soda PRN History of anesthesia reaction trouble urinating post-op, states no issues if catheterized for surgery History of COVID-19 07/07/2021 - development pneumonia - hospitalized for a few days at [facility] then transferred to [facility] x5 days - resolved Myelomalacia of cervical cord Peripheral neuropathy whole body - originated in cervical spine Transverse myelitis cervical 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 Follows with [place] Neurosurgeon, Dr. Connelly ([place]) last visit 02/23/22 Patient denies h/o stroke, seizures, heart attack, heart failure, DM, HTN, blood clots or blood transfusions. Exercise / Class Metabolic Activity II 4-5 Yardwork/Stairs/Walk up hill (denies CP or SOB with 1 FOS) Past Family History Family History Brother Diabetes Other No family history of adverse response to anesthesia Past Surgical History Surgical History History of colonoscopy History of discectomy with fusion C5-C6 (2017). 90% ROM History of open reduction and internal fixation (ORIF) procedure Left elbow S/P epidural steroid injection right SI Joint S/P LASIK surgery Past Anesthesia History No Family Hx of Anesthesia Complications and Other (post-op urinary dysfunction if not catheterized) History of PONV No Hx of PONV and No Hx of Motion Sickness Social History Smoking Status: Former smoker tobacco type: cigarettes Do You Dip or Chew Tobacco: No Smoking End Date: 2017 Hx Alcohol Use: No Hx Substance Use: No substance use type: does not use Review of Systems Snoring, denies witnessed apneas. Patient denies chest pain, shortness of breath, dyspnea on exertion, fever, chills, cough, wheezing, or palpitations. Physical Exam Vital Signs Vitals BP 120/77 P 73 TEMP 98.3 SP02 98% on RA RESP 18 Physical Mild limitation cervical extension range of motion without pain TMD 3.5 finger breadths Mallampati Score 2 Dentition: intact, several crowns; denies chipped or loose teeth, implants or bridges Lungs: normal respiratory effort. Clear throughout to auscultation, no adventitious breath sounds Cardiac: regular rate and rhythm, no murmurs noted Carotid arteries: negative bruit bilat Lab Results Anesthesia Preop Results Results Anesthesia Widget: WBC 6.30 K/ul (4.8-10.8) 03/30/22 Hgb 13.2 g/dl (14.0-18.0) L 03/30/22 Hct 39.4 % (40.1-51.0) L 03/30/22 Plt 229 K/uL (130-400) 03/30/22 PT 10.2 Seconds (9.0-12.0) 03/30/22 PTT 25.9 Seconds (21.0-31.0) 03/30/22 INR 1.0 (0.9-1.1) 03/30/22 Urine Color Yellow 03/30/22 Urine Appearance Clear (Clear) 03/30/22 Urine pH 6.0 (4.5-7.5) 03/30/22 Urine Specific [place] 1.007 (1.000-1.030) 03/30/22 Urine Protein Negative (Negative) 03/30/22 Urine Glucose (UA) Negative (Negative) 03/30/22 Urine Ketones Negative (Negative) 03/30/22 Urine Blood Negative (Negative) 03/30/22 Urine Nitrite Negative (Negative) 03/30/22 Urine Bilirubin Negative (Negative) 03/30/22 Urine Urobilinogen Negative (Negative) 03/30/22 Urine Leukocyte Esterase Negative (Negative) 03/30/22 Blood Type O Positive 03/30/22 Antibody Screen NEGATIVE 03/30/22 Testing Laboratory Results 03/04/2022 SODIUM: 141 POTASSIUM: 4.7 CHLORIDE: 107 CO2: 27 BUN: 14 CREATININE: 0.9 GLUCOSE: 84 Electrocardiogram Date: 03/04/22 NSR, rate 67 bpm Chest X-Ray Date: 03/30/22 Old, healed right clavicular fracture is incidentally noted. Lung volumes are normal. There is no consolidation to suggest pneumonia. Linear left lower lung opacity reflects atelectasis or scarring. Airspace opacities on prior chest ra diograph and chest CT have resolved. There is no pneumothorax or pleural effusion. Cardiac size is normal. Mediastinal contours are normal. There is no evidence for pulmonary edema. IMPRESSION: No acute cardiopulmonary findings. Other Testing MRI C spine 08/21/21 No cervical cord demyelinating disease. Similar minimal C3-C4 cord atrophy myelomalacia. Suboptimally characterized mid to lower cervical spondylosis with up to moderate-severe bilateral C5-6 and left C6-7 neural foraminal narrowing Chest CTA 07/07/21 Impression: 1. No CTA evidence for pulmonary embolus. 2. Compared to the previous examination, there is worsening of extensive groundglass opacities throughout both lungs characteristic of a viral type pneumonitis and Covid 19 pneumonia. COVID-19 Risk Screen Screening Information COVID-19 Screen Date: 03/30/22 Exposure 21 Days Family/Household +COVID Last 21 Days: No Exposure 10 Days Any COVID Exposure Last 10 Days: No Symptoms Last 10 Days Experienced COVID Sx Last 10 Days: No + COVID 0-90 Days COVID + in Last 0-90 Days: No
[~2022-04-13 08:28] MED LIST: ACETAMINOPHEN 500 MG TAB PO SCH; CeleBREX 200 MG CAP PO SCH; GABAPENTIN 600 MG DOSE PO SCH; LR 15ML/HR IV SCH; ceFAZolin 2000MG 2,000 MG/15 ML SYR IV SCH
[2022-04-13] MEDS ORDERED: ATROPINE SULFATE 0.1 MG/ML 10ML SYR IV PRN (09:08)
[2022-04-13] MEDS ORDERED: PROMETHAZINE HCL 6.25 MG in SODIUM CHLORIDE 0.9% 50 ML IV PRN (09:08)
[2022-04-13] MEDS ORDERED: HYDROmorphone INJ 2 MG/ML SYR/VIAL IV PRN (09:08)
[2022-04-13] MEDS ORDERED: ePHEDrine sulfate 50 MG/ML AMP IV PRN (09:08)
[2022-04-13] MEDS ORDERED: ONDANSETRON INJ 2 MG/ML 2 ML VIAL IV PRN ×2 (09:08→13:39)
[2022-04-13] MEDS ORDERED: fentaNYL citrate 100 MCG/2 ML VIAL ONE (09:40)
[2022-04-13] MEDS ORDERED: MIDAZOLAM HCL 1 MG/ML 2ML VIAL ONE (09:40)
[2022-04-13] MEDS ORDERED: HYDROmorphone INJ 2 MG/ML SYR/VIAL ONE (09:41)
--- NOTE | 2022-04-13 09:51 | History & Physical Bridge Note ---
Date of Service April 13, 2022 History & Physical Bridge Note I have examined the patient, reviewed the History & Physical and in the interval since the performance of the History & Physical I have noted the following changes of clinical significance: no changes noted
--- NOTE | 2022-04-13 09:52 | History & Physical Report ---
Date of Service April 13, 2022 Assessment & Plan (1) Degenerative disc disease, cervical: Plan: L4-L5 decompression and fusion History of Present Illness Chief Complaint: Back and leg pain Primary Care Provider: Susu Marmolejo PA-C This is a 56-year-old male who presents chronic persistent back and leg pain after failing since course of nonoperative care is here for surgical invention. Allergies Allergy/AdvReac Type Severity Reaction Status Date / Time No Known Allergies Allergy Verified 04/13/22 08:45 Home Medications Medication Instructions Recorded Confirmed Type ascorbic acid (vitamin C) 1,000 mg 1 g PO QAM 07/02/19 04/13/22 History tablet (Vitamin C) albuterol sulfate 90 mcg/actuation 1 - 2 puff inhalation QID PRN 07/07/21 04/13/22 History aerosol inhaler Shortness Of Breath Or Wheezing gabapentin 300 mg capsule 600 mg PO TID #1 cap 07/10/21 04/13/22 Rx baclofen 20 mg tablet 20 mg PO TID 09/02/21 04/13/22 History naproxen 500 mg tablet 500 mg PO BID PRN Pain 03/22/22 04/13/22 History Nasal [place] Sinus 3 spray NA DAILY PRN Congestion 03/30/22 04/13/22 History Past Med/Surg History Medical History Cervicalgia Cervicogenic headache Chronic back pain Degenerative disc disease, cervical GERD (gastroesophageal reflux disease) mild - baking soda PRN History of anesthesia reaction trouble urinating post-op, states no issues if catheterized for surgery History of COVID-19 07/07/2021 - development pneumonia - hospitalized for a few days at [facility] then transferred to [facility] x5 days - resolved Myelomalacia of cervical cord Peripheral neuropathy whole body - originated in cervical spine Transverse myelitis cervical 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 Follows with [place] Neurosurgeon, Dr. Connelly ([place]) last visit 02/23/22 Surgical History History of colonoscopy History of discectomy with fusion C5-C6 (2018). 90% ROM History of open reduction and internal fixation (ORIF) procedure Left elbow S/P epidural steroid injection right SI Joint S/P LASIK surgery Family History Brother Diabetes Other No family history of adverse response to anesthesia Social History Smoking Status: Never smoker Smoking End Date: 2017; Second Hand Exposure: Yes (hx); Do You Dip or Chew Tobacco: No; Tobacco Cessation Education Requested by Patient: No Hx Alcohol Use: No Hx Substance Use: No Preferred Language: Swedish Communication Ability: Effective Occupational Therapist Per Diem Required: No Beliefs That Will Affect Care: None Current Living Situation: Family Current Living Situation Comment: mother Other Information That Helps Us Care for You: No Feels Safe at Home: Yes Safety Concerns: Feels Safe At This Time Assistive Devices: Oxygen - Continuous Physical Exam Physical Exam: Patient is alert and oriented Heart regular rhythm Lungs clear Results & Data Results & Data ([facility]) Vital Signs (Past 12 Hours) Vital Signs Temp Pulse Resp BP Pulse Ox 04/13/22 08:49 36.9 C 83 18 122/79 96
[2022-04-13] MEDS ORDERED: ceFAZolin 330 MG/ML 1 GM VIAL ONE (10:00)
[2022-04-13] MEDS ORDERED: BUPIVACAINE/EPINEPHRINE 0.25% 1:200,000 30 ML VIAL ONE (10:00)
[2022-04-13] MEDS ORDERED: SUGAMMADEX SODIUM 200 MG/2 ML VIAL IV ONE (10:08)
[2022-04-13] MEDS ORDERED: FLOSEAL HEMOSTATIC MATRIX 10ML TOP ONE (11:05)
--- NOTE | 2022-04-13 11:51 | Operative Report ---
Post Operative Report Pre & Post Diagnosis Operation Date: 04/13/22 09:55 Pre-Op Diagnosis: Lumbar Degenerative Disc Disease with spinal stenosis and radiculopathy Post-Op Diagnosis: Same I identified the patient and participated in the time-out.: Yes Procedure Operation Date: 04/13/22 09:55 Actual Procedures #1 lumbar decompression bilateral medial facetectomies and foraminotomies L3-L4 and L4-L5. #2 posterior spinal fusion L4-5. #3 placement posterior instrumentation L4-L5. #4 interbody fusion L4-5. #5 placement of Spira 14 x 26 mm cage at L4-5. 6 placement locally harvested morselized autograft in the posterior gutters. #7 placement of I factor combined with V toss in the interbody space and posterior lateral gutters. Surgeon Brayan Pollard, [employer] Architect Khushi Lopez Estimated Blood Loss 50 Findings Consistent with Post-Op Diagnosis Specimens None Indications This is a 56-year-old male who presents above-mentioned diagnosis after failing since course of nonoperative care is here for surgical invention. Description of Procedure Patient was met with identified informed consent obtained. Patient was then taken to the operative suite underwent a patient placed in a prone position the Thornton table top Antione frame. All bony prominences well-padded eyes inspected to ensure no external pressure placed upon them. This point the lumbar spine was prepped and draped in normal sterile fashion. Sharp dissection with the assistance of Bovie cautery was performed down to and exposing the lamina and transverse processes of L4-L5. From caudal to cephalad fashion complete laminectomy L4 partial laminectomy of L3 was performed including bilateral medial facetectomies and foraminotomies addressing severe spinal stenosis. Pedicle screws were then placed at L4 and L5 bilaterally with assistance of fluoroscopy and the properly sized taylor placed. By way of a transfemoral approach and right a complete discectomy of L4-5 was performed endplates curetted to subcortical bleeding bone and a 14 x 26 mm spiral cage with I factor tapped in position. The rods then locked in final position bilaterally. The transverse processes of L4-L5 burred to subcortical bleeding bone. I factor combined with V toss and locally harvested morselized autograft was placed in the posterior gutters. 15 round HE drain inserted. The incision was then closed with 1 Vicryl the fascia 2-0 Vicryl subcutaneously and 4 Monocryl for final skin closure. Steri-Strip sterile dressings placed. Patient waken taken to PACU in stable condition. Please note spinal cord monitoring was utilized at the procedure no changes noted. Lastly Khushi Lopez was present out the entire procedure involved patient positioning complex portions of the surgery and fascial closure. I attest to the content of the Intraoperative Record and any orders documented therein. Any exceptions are noted below.
[2022-04-13] MEDS ORDERED: ONDANSETRON INJ 2 MG/ML 2 ML VIAL ONE (12:13)
[2022-04-13] MEDS ORDERED: LIDOCAINE 2% MPF LOCAL 5 ML VIAL INFIL ONE (12:13)
[2022-04-13] MEDS ORDERED: PHENYLEPHRINE HCL 10 MG/ML VIAL ONE (12:13)
[2022-04-13] MEDS ORDERED: DEXAMETHASONE SOD INJ 4 MG/ML VIAL ONE (12:13)
[2022-04-13] MEDS ORDERED: ROCURONIUM BROMIDE 10 MG/ML 5 ML VIAL IV ONE (12:13)
[2022-04-13] MEDS ORDERED: PROPOFOL IV EMULSION 10 MG/ML 20 ML VIAL IV ONE (12:13)
--- NOTE | 2022-04-13 12:20 | Fluoroscopy Report ---
FL lumbar spine 2-3V CLINICAL HISTORY: L4-5 DFI COMPARISON STUDY: None. FLUOROSCOPY TIME: 17 seconds. FLUOROSCOPIC IMAGES: 2 FINDINGS: Fluoroscopy was provided during L4-L5 discectomy, posterior decompression and bilateral ped icle screw fusion. Hardware is intact. There are no unexpected radiopaque foreign bodies. IMPRESSION: Fluoroscopy provided during L4-L5 discectomy, posterior decompression and bilateral pedi eugene screw fusion. ACT 112: Negative or not required by law. Electronically signed by: Mark Keys M.D. 04/13/2022 12:19 PM
[2022-04-13] MEDS: fentaNYL citrate 100 MCG/2 ML VIAL IV PRN ×4 (12:26→13:17)
[2022-04-13] MEDS ORDERED: ACETAMINOPHEN 500 MG TAB PO PRN (13:39)
[2022-04-13] MEDS ORDERED: ACETAMINOPHEN 1,000 MG/100 ML VIAL IV PRN (13:39)
[2022-04-13] MEDS ORDERED: traMADol HCL 50 MG TABLET PO PRN (13:39)
[2022-04-13] MEDS ORDERED: FAMOTIDINE 20 MG TAB PO PRN (13:39)
[2022-04-13] MEDS ORDERED: HYDROmorphone INJ 0.5 MG/0.5 ML SYR IV PRN (13:39)
[2022-04-13] MEDS ORDERED: METOCLOPRAMIDE HCL INJ 5 MG/ML 2 ML VIAL IV PRN (13:39)
[2022-04-13] MEDS ORDERED: LORazepam 0.5 MG in SYRINGE 0 ML IV PRN (13:39)
[2022-04-13] MEDS ORDERED: ONDANSETRON 4 MG OD TAB PO PRN (13:39)
[2022-04-13] MEDS ORDERED: diphenhydrAMINE Capsule 25 MG CAP PO PRN (13:39)
[2022-04-13] MEDS ORDERED: bisacodyL 10 MG SUPP PR PRN (13:39)
[2022-04-13] MEDS ORDERED: NALOXONE HCL 0.4 MG/1 ML VIAL/CARP IV PRN (13:39)
[2022-04-13] MEDS ORDERED: PROMETHAZINE HCL 12.5 MG in SODIUM CHLORIDE 0.9% 50 ML IV PRN (13:39)
[2022-04-13] MEDS ORDERED: hydrOXYzine HCl 25 MG TAB PO PRN (13:39)
[2022-04-13] MEDS ORDERED: LORazepam 0.5 MG TAB PO PRN (13:39)
[2022-04-13] MEDS ORDERED: SOD PHOSPHATE/SOD BIPHOSPHATE ENEMA 132 ML BTL PR PRN (13:39)
[2022-04-13] MEDS ORDERED: HYDROmorphone INJ 1 MG/ML SYRINGE IV PRN (13:39)
[2022-04-13] MEDS ORDERED: MAGNESIUM HYDROXIDE SUSP 30 ML UDC PO PRN (13:39)
[2022-04-13] MEDS: oxyCODONE HCL IR 5 MG TAB (IMMEDIATE RELEASE) PO PRN ×2 (14:13→19:44)
[2022-04-13] MEDS: LACTATED RINGER'S 1,000 ML IV SCH ×2 (14:15→23:41)
[2022-04-13] MEDS: GABAPENTIN 300 MG CAP PO SCH ×2 (14:42→20:06)
[2022-04-13] MEDS: BACLOFEN 20 MG TAB PO SCH ×2 (14:51→20:06)
--- NOTE | 2022-04-13 16:13 | Anesthesiology Progress Note ---
Date of Service April 13, 2022 Anesthesia Post Procedure Vital Signs Vital Signs: Temp Pulse Pulse Resp BP Pulse Ox O2 Del Method 04/13/22 15:45 36.5 C 87 16 102/68 98 Room Air 04/13/22 14:00 Nasal Cannula 04/13/22 14:45 36.7 C 82 16 101/68 96 Nasal Cannula 04/13/22 14:15 37 C 77 18 112/74 96 Nasal Cannula 04/13/22 13:45 36.9 C 87 18 115/76 96 Nasal Cannula 04/13/22 13:35 71 16 109/68 96 Nasal Cannula 04/13/22 13:25 36.8 C 73 16 108/70 97 Nasal Cannula 04/13/22 13:15 73 16 112/75 95 Nasal Cannula 04/13/22 13:05 72 16 112/79 98 Nasal Cannula 04/13/22 12:55 85 22 128/78 97 Nasal Cannula 04/13/22 12:45 36.6 C 80 18 137/76 94 Nasal Cannula 04/13/22 12:35 82 15 121/79 94 Nasal Cannula 04/13/22 12:25 85 14 124/84 98 Oxymask 04/13/22 12:15 81 16 123/77 98 Oxymask 04/13/22 12:06 36.5 C 86 16 137/86 97 Oxymask 04/13/22 08:49 36.9 C 83 18 122/79 96 O2 Flow Rate 04/13/22 15:45 04/13/22 14:00 2 04/13/22 14:45 1 04/13/22 14:15 2 04/13/22 13:45 2 04/13/22 13:35 2 04/13/22 13:25 2 04/13/22 13:15 2 04/13/22 13:05 2 04/13/22 12:55 2 04/13/22 12:45 2 04/13/22 12:35 2 04/13/22 12:25 5 04/13/22 12:15 5 04/13/22 12:06 5 04/13/22 08:49 Pain Intensity Right Leg: Pain Intensity: 3 Back: Pain Intensity: 4 Transfer of Care Handoff Completed per policy Notes Mental Status: alert / awake / arousable Patient Amnestic to Procedure: Yes Nausea / Vomiting: adequately controlled Pain: adequately controlled Airway Patency, RR, SpO2: stable & adequate BP & HR: stable & adequate Hydration State: stable & adequate Anesthetic Complications: no major complications apparent
[2022-04-13] MEDS: DOCUSATE SODIUM/SENNA 50/8.6MG TAB PO SCH (20:06)
[2022-04-13] MEDS ORDERED: GABAPENTIN 300 MG CAP PO ONE (23:00)
[2022-04-14] MEDS: POLYETHYLENE (MIRALAX) 17 GM PACK PO SCH ×4 (06:05→23:06)
[2022-04-14] MEDS: BACLOFEN 20 MG TAB PO SCH ×5 (06:05→20:40)
[2022-04-14] MEDS: oxyCODONE HCL IR 5 MG TAB (IMMEDIATE RELEASE) PO PRN ×5 (06:09→23:06)
[2022-04-14 08:26] LABS: Basophils # (auto) 0.03 K/uL (0-0.2); Basophils % (auto) 0.2 %; Eosinophils # (auto) 0.04 K/uL (0-0.50); Eosinophils % (auto) 0.2 %; Hematocrit (blood only) 35.6 % (40.1-51.0); Hemoglobin 12.1 g/dl (14.0-18.0); Immature Granulocytes # (auto) 0.07 K/uL (0.00-0.02); Immature Granulocytes % (auto) 0.4 %; Lymphocytes # (auto) 2.13 K/uL (1.2-3.4); Mean Corpuscular Hemoglobin 29.9 pg (25.0-34.0); Mean Corpuscular Volume 87.9 fL (80.0-100.0); Mean Platelet Volume 10.6 fL (9.4-12.4); Monocytes % (auto) 8.5 %; Neutrophils # (auto) 12.74 K/uL (1.4-6.5); Neutrophils % (auto) 77.7 %; Platelet Count 236 K/uL (130-400); RDW Coefficient of Variation 13.2 % (11.5-14.5); RDW Standard Deviation 42.6 fL (36.4-46.3); Red Blood Count 4.05 M/uL (4.63-6.08); White Blood Count 16.41 K/ul (4.8-10.8)
--- NOTE | 2022-04-14 08:28 | Orthopedic Progress Note ---
Date of Service April 14, 2022 Assessment & Plan (1) Lumbar degenerative disc disease: Plan: Brayan is postop day 1 status post TLIF L4-5. He will start physical therapy today. Continue with pain control. Maintain HE drain. DVT prophylaxis is in the form of teds and SCDs. Continue with aggressive bowel regimen. Anticipate discharge home within the next 24 to 48 hours. Admission and Anticipated Discharge Date Admission Date: April 13, 2022 Joesph Schmidt is postoperative day 1 status post TLIF L4-5. Complains of lower back pain. Denies leg pain. HE drain output last shift was 60 cc. Labs are pending. No other complaints. Review of Systems Review of Systems: All systems reviewed & are unremarkable except as noted in HPI & below Physical Exam Physical Exam: He sitting up in bed in no acute distress Alert and oriented x3 Lumbar dressing is clean dry and intact with functioning HE drain Calf soft nontender bilaterally Strength intact bilateral lower extremity Results & Data ([facility]) Vital Signs (Past 12 Hours) Vital Signs Temp Pulse Resp BP Pulse Ox O2 Del Method 04/14/22 07:39 36.8 C 70 16 104/68 97 Room Air 04/14/22 02:43 37.0 C 84 16 110/74 94 Room Air 04/13/22 23:28 37.2 C 96 H 20 119/78 93 Room Air
[2022-04-14 08:56] LABS: Calcium 9.2 mg/dl (8.5-10.1); Creatinine Clr Calc Pharmacy 118.5 ml/min; Est GFR (African American) 119.7 ml/min; Est GFR (Non-African American) 103.3 ml/min; Potassium 3.9 mmol/L (3.5-5.1)
[2022-04-14] MEDS: ASCORBIC ACID 500 MG TAB PO SCH (09:02)
[2022-04-14] MEDS: GABAPENTIN 300 MG CAP PO SCH ×3 (09:03→23:07)
[2022-04-14] MEDS: dexAMETHasone 6 MG in SYRINGE 0 ML IV SCH (09:04)
[2022-04-14] MEDS: DOCUSATE SODIUM/SENNA 50/8.6MG TAB PO SCH (20:40)
[2022-04-15] MEDS: ALUMINUM/MAGNESIUM SUSP 30 ML UDC PO PRN ×2 (00:18→07:47)
[2022-04-15] MEDS: POLYETHYLENE (MIRALAX) 17 GM PACK PO SCH ×2 (05:58→11:55)
[2022-04-15] MEDS: oxyCODONE HCL IR 5 MG TAB (IMMEDIATE RELEASE) PO PRN ×3 (06:03→16:03)
[2022-04-15] MEDS: BACLOFEN 20 MG TAB PO SCH ×2 (06:09→12:42)
[2022-04-15] MEDS: GABAPENTIN 300 MG CAP PO SCH ×2 (07:59→16:03)
[2022-04-15] MEDS: dexAMETHasone 6 MG in SYRINGE 0 ML IV SCH (08:33)
[2022-04-15] MEDS: ASCORBIC ACID 500 MG TAB PO SCH (08:33)
--- NOTE | 2022-04-15 11:04 | Discharge Summary ---
Date of Service April 15, 2022 Admission HPI Per Admitting Provider This is a 56-year-old male who presents chronic persistent back and leg pain after failing since course of nonoperative care is here for surgical invention. Principal Diagnosis Lumbar spinal stenosis with radiculopathy Discharge Data Allergies Allergy/AdvReac Type Severity Reaction Status Date / Time No Known Allergies Allergy Verified 04/13/22 08:45 Procedures Performed Operation Date: 04/13/22 09:55 Actual Procedures p L4-L5 Decompression and Fusion, Spinal Cord Monitoring(Not Applicable) - Brayan Pollard DO Ordered Studies 04/13/22 09:55 [place] lumbar spine 2-3V Routine Hospital Course (1) Lumbar degenerative disc disease: Patient underwent lumbar decompression fusion tolerated this well was taken to orthopedic for postop labor postop day 1 is up and ambulating progressed to postop day #2. HE drain decreasing probably. Excellent strength testing. With pain well controlled. Socially discharged home. Discharge orders instructions from the chart for further review. Total Time Total Time Spent Total Time Spent (In Minutes): 20 minutes Discharge Plan Discharge Items Patient Disposition: Home - Self-Care Reason For Visit: Unspecified Thoracic, Thoracolumbar and Lumbosac Discharge Diagnosis: Lumbar spinal stenosis with radiculopathy Activity: As commented below Non-emergency contact: Primary Care Provider Call non-emergency contact if: you have any medication questions Follow-up/Referrals: Susu Marmolejo PA-C [Primary Care Provider] - Diet: Regular Addtl Attending Provider Instructions: ACTIVITY RECOMMENDATIONS: SELF CARE INSTRUCTIONS AFTER THORACIC/LUMBAR FUSIONS 1. You may walk to your tolerance. It is good exercise for your legs and back. Expect some back and intermittent leg aches and pains. 2. You may perform "counter-top" level activities (make a sandwich, lina with a project, etc.). 3. No bending or lifting of more than 10 pounds or back twisting of any nature (roll like a log when turning in bed). 4. You may ride in a car for 20-30 minutes at a time. No driving until after your first visit with your doctor. 5. Frequent changes of position and restricting sitting to 30 minutes at a time will help limit the amount of back spasms and stiffness you may experience. 6. You may discontinue the use of ambulatory aids (cane, crutches, etc.) once your strength and confidence allow. 7. You may research agricultural engineer the shower and let water strike your incision when you arrive home at least once daily. Do not take a tub bath, sit in a hot tub or go into a swimming pool until after your first recheck in the office. SPECIAL CARE INSTRUCTIONS: VERY IMPORTANT TO READ AND REVIEW A. Your surgical incision has been closed with a cosmetic suture under the skin that will dissolve in about 6 weeks. In 14 days, you can use a pair of clean scissors and cut the suture that is left outside of the skin at the ends of your incision. 1. The small skin tapes can be removed 7 days after surgery if they have not fallen off by that point. 2. You may keep the wound open to air as much as possible to promote healing after post-op day number 5 unless told otherwise by your doctor. 3. If you think the wound looks like it is becoming infected (redness or worsening drainage) and/or you are experiencing fever, chill or worsening back pain and muscle spasms, contact the office so that we may evaluate you as soon as possible. B. Complications are uncommon, but please contact us if you have any signs or symptoms of: 1. wound infection (fever higher than 102.5 degrees F, redness, separation of wound, drainage, or increasing pain from the incision) 2. blood clots in legs (pain, swelling, redness and warmth in legs) 3. urinary tract infection (fever higher than 102.5 degrees F, burning upon urination or increased frequency of urination) 4. nerve problems (inability to walk on your toes or heels, numbness, loss of bowel or bladder control) 5. any other symptoms that concern you C. Please call the office at if you have any concerns or questions about your operation or recovery. D. No smoking! Smoking drastically decreases the chance of a solid fusion. E. Do not take any anti-inflammatory medications (Indocin, Advil, Motrin, Aspirin, Naprosyn, etc.) as these may inhibit the chance of a solid fusion. Tylenol is okay to take for pain. MANAGING PAIN AFTER SPINAL SURGERY 1. Narcotic medication is intended for short-term use and will be provided for surgical pain. Surgical pain usually lasts for a period of 4-6 weeks. Narcotic medication includes Percocet, Vicodin, Darvocet, Tylenol #3 or Lortab. 2. Longer-term pain is more appropriately treated with non-narcotic medication such as Tylenol ES. 3. Muscle spasm is not appropriately treated with narcotics. Muscle relaxers such as Soma, Flexeril or Skelaxin can be used along with Tylenol ES. 4. Remember that we all live with some "aches and pains". This is not unusual or uncommon after an injury or as we get older. a. Back pain is expected and may include muscle spasms for 4 to 6 weeks after surgery. The pain should gradually improve. If the pain worsens for no apparent reason, please contact the office. b. Intermittent leg pain may also be experienced and should not be concerned about unless it worsens for no apparent reason. If so, please contact the office. 5. We will provide appropriate medication within the normal guidelines of their prescribed use. We will also be very cautious and aware of potential abuse and extended duration of patients' medication needs. a. Pain medications are for your comfort and to assist with sleep and rest so that the tissue can heal. They are not provided in order to return to normal activity and should not be used through the day. To do so or worsening pain at night can result from ongoing tissue damage and development of tolerance to the prescribed medicine. 6. Please allow 2-3 days to process refills. Prescriptions will not be mailed but must be picked up at the office. FOLLOW UP VISIT: Keep your scheduled follow-up appointment. Any questions, please call the office at . Pending Studies at Discharge: No Stand-Alone Forms: My [facility], Smoking Cessation Medications and ND Order Prescriptions: New tramadol 50 mg tablet 50 mg PO Q6H PRN (Reason: pain, moderate) Qty: 30 0RF oxycodone 5 mg tablet 5 mg PO Q6H PRN (Reason: pain, severe) Qty: 30 0RF Continued ascorbic acid (vitamin C) [Vitamin C] 1,000 mg Tablet 1 g PO QAM baclofen 20 mg tablet 20 mg PO TID albuterol sulfate 90 mcg/actuation HFA aerosol inhaler 1 - 2 puff INHALATION QID PRN (Reason: Shortness Of Breath Or Wheezing) gabapentin 300 mg Capsule 600 mg PO TID Qty: 1 0RF naproxen 500 mg Tablet 500 mg PO BID PRN (Reason: Pain) Nasal [place] Sinus 3 spray NA DAILY PRN (Reason: Congestion) Discharge Orders: Discharge Order (Routine); Ordered 04/15/22 Ordered By: Brayan Pollard Admission Data Admit Date/Time: 04/13/22 11:53 Attending Provider: Brayan Pollard Admit Provider: Brayan Pollard Primary Care Provider: Susu Marmolejo
== END 2022-04-15 16:16 | disposition home or self-care (01) | DRG 455 ==
LOC: ASU 08:28 → PACUINP 11:53 → 3E 13:57
DX: Z98.1 Arthrodesis status; Z86.16 Personal history of COVID-19; Z86.69 Personal history of other diseases of the nervous system and sense organs; M48.061 Spinal stenosis, lumbar region without neurogenic claudication; G62.9 Polyneuropathy, unspecified; M54.16 Radiculopathy, lumbar region; Z79.899 Other long term (current) drug therapy; Z20.822 Contact with and (suspected) exposure to COVID-19